=== PATIENT | male | born 1995 ===

== ENCOUNTER 2017-01-30 13:12 | Observation (INO) | payer OTHER ==
[2017-01-30] MEDS ORDERED: Sodium Chloride 0.9% 1,000 ML IV STA ×2 (13:55→17:05)
--- NOTE | 2017-01-30 13:59 | ED PDOC ---
HPI: General Adult Time Seen by Provider: 01/30/17 13:56 Chief Complaint (Nursing): Palpitations Chief Complaint (Provider): anxiety History Per: Patient, Family (21 y/o male h/o spina bifida here with anxiety ongoing x few months. Mother states he has had ongoing palpitations associated with worrying about his shunt/medical illness. Has been given vistaril for symptoms but has not helped. Was prescribed paxil but felt worse after starting and did not continue. Vomiting noted intermittently with symptoms.) Past Medical History Reviewed: Historical Data, Nursing Documentation, Vital Signs Vital Signs: Last Vital Signs Temp 98.4 F 01/30/17 16:09 Pulse 109 H 01/30/17 18:27 Resp 21 01/30/17 16:09 BP 134/78 01/30/17 16:09 Pulse Ox 100 01/30/17 16:09 - Medical History PMH: HTN, Chronic Kidney Disease - Surgical History Surgical History: Cholecystectomy - Family History Family History: States: Unknown Family Hx - Immunization History Hx Tetanus Toxoid Vaccination: Yes Hx Influenza Vaccination: Yes Hx Pneumococcal Vaccination: Yes - Home Medications Home Medications: Ambulatory Orders Medication Instructions Recorded Alprazolam [Xanax] 0.5 mg PO BID PRN 01/30/17 Chlorothiazide 1,000 mg PO QPM 01/30/17 Chlorothiazide [Chlorothiazide] 500 mg PO QAM 01/30/17 Cholecalciferol [Vitamin D 1000 IU] 1,000 unit PO DAILY 01/30/17 Docusate [Colace] 100 mg PO BID PRN 01/30/17 Enalapril Maleate [Vasotec] 10 mg PO DAILY 01/30/17 Polyethylene Glycol 3350 [Miralax] 17 gm PO DAILY PRN 01/30/17 Sennosides [Senna] 8.6 mg PO BID PRN 01/30/17 Sodium Bicarbonate Tab 1,300 mg PO BID 01/30/17 hydrOXYzine Pamoate [Vistaril] 25 mg PO BID PRN 01/30/17 - Allergies Allergies/Adverse Reactions: Allergies Allergy/AdvReac Type Severity Reaction Status Date / Time No Known Allergies Allergy Verified 06/12/16 11:18 Review of Systems ROS Statement: Except As Marked, All Systems Reviewed And Found Negative Cardiovascular: Positive for: Palpitations Gastrointestinal: Positive for: Vomiting, Constipation Physical Exam - Reviewed Nursing Documentation Reviewed: Yes Vital Signs Reviewed: Yes - Physical Exam Appears: Positive for: Well, Non-toxic, No Acute Distress Head Exam: Positive for: ATRAUMATIC, NORMAL INSPECTION, NORMOCEPHALIC Skin: Positive for: Normal Color, Warm, DRY Eye Exam: Positive for: EOMI, Normal appearance, PERRL ENT: Positive for: Normal ENT Inspection Neck: Positive for: Normal, Painless ROM Cardiovascular/Chest: Positive for: Regular Rate, Rhythm Respiratory: Positive for: CNT, Normal Breath Sounds Gastrointestinal/Abdominal: Positive for: Normal Exam, Bowel Sounds, Soft Back: Positive for: Normal Inspection Extremity: Positive for: Normal ROM Neurologic/Psych: Positive for: Alert, Oriented - Laboratory Results Result Diagrams: 01/30/17 14:05 01/30/17 14:05 - ECG O2 Sat by Pulse Oximetry: 98 - Progress ED Course And Treament: ekg: sinus tachycardia 127 bpm no ectopy no acute changes Rocephin 1 gm iv x 1 dose Ativan 0.5 mg iv x 2 doses NS 1 liter wide open x 2 liters persistent tachycardia of HR [address] Grove for observation of tachycardia Disposition - Clinical Impression Clinical Impression: Palpitations, UTI (urinary tract infection) - Patient ED Disposition Is Patient to be Admitted: Yes - Disposition Disposition Time: 18:07 Condition: FAIR - Pt Status Changed To: Hospital Disposition Of: Observation
[2017-01-30 14:11] LABS: BASO % 0.3 % (0.0-2.0); EOS % 0.1 % (0.0-4.0); HEMOGLOBIN 17.4 g/dL (12.0-18.0); LYMPH # 1.5 K/uL (1.0-4.3); LYMPH % 11.8 % (20.0-40.0); MEAN CELL VOLUME 87.6 fl (80.0-94.0); MEAN CORPUSCULAR HEMOGLOBIN 29.8 pg (27.0-31.0); MEAN PLATELET VOLUME 8.1 fl (7.2-11.7); MONO % 7.7 % (0.0-10.0); NEUT # 10.3 K/uL (1.8-7.0); NEUT % 80.1 % (50.0-75.0); NRBC % 0.1 % (0.0-0.0); RBC 5.84 Mil/uL (4.40-5.90); WHITE BLOOD COUNT 12.9 K/uL (4.8-10.8)
[2017-01-30 14:19] LABS: ALB/GLOB RATIO 1.1 (1.0-2.1); ALBUMIN 5.4 g/dL (3.5-5.0); ALT/SGPT 31 U/L (21-72); AST/SGOT 25 U/L (17-59); BLOOD UREA NITROGEN 16 mg/dl (9-20); CALCIUM 10.7 mg/dL (8.4-10.2); GFR AFRICAN-AMERICAN > 60; GFR NON-AFRICAN AMERICAN > 60; MAGNESIUM 1.6 MG/DL (1.6-2.3)
[2017-01-30 14:45] LABS: SQUAMOUS EPITHIAL < 1 /hpf (0-5); URINE BACTERIA OCC (<OCC); URINE BILIRUBIN NEGATIVE (NEGATIVE); URINE BLOOD SMALL (NEGATIVE); URINE CLARITY SLIGHTY-CLOUDY (Clear); URINE COLOR YELLOW (YELLOW); URINE GLUCOSE (UA) NEG (Normal); URINE LEUKOCYTE ESTERASE LARGE Leu/uL (Negative); URINE NITRATE NEGATIVE (NEGATIVE); URINE PROTEIN NEGATIVE (NEGATIVE)
[2017-01-30] MEDS ORDERED: Potassium Chloride 20 mEq ER Tab PO STA (15:08)
--- NOTE | 2017-01-30 15:27 | RAD ---
HISTORY: palpitation COMPARISON: Comparison chest dated 06/12/2016. . Comparison also made with CT scan chest abdomen pelvis 06/12/2016 FINDINGS: LUNGS: Poor inspiration with low lung volumes, crowded bronchovascular markings and mild bibasilar atelectasis. PLEURA: No significant pleural effusion identified, no pneumothorax apparent. CARDIOVASCULAR: Normal. OSSEOUS STRUCTURES: No significant abnormalities. VISUALIZED UPPER ABDOMEN: Normal. OTHER FINDINGS: Re- demonstrated is a right-sided FURNITURE ASSEMBLER type shunt tube which extends over the right aspect of the neck, right medial cecille thorax and medial upper abdomen. Please refer to CT scan chest abdomen and pelvis for additional details if clinically necessary. IMPRESSION: Poor inspiration with low lung volumes, crowded bronchovascular markings and mild bibasilar atelectasis. In situ FURNITURE ASSEMBLER shunt to essentially unchanged from prior study.
[2017-01-30] MEDS ORDERED: Potassium Chloride 20 mEq ER Tab PO ONE (16:16)
[2017-01-30] MEDS ORDERED: cefTRIAXone (Rocephin) 1 gm Inj ONE (16:16)
[2017-01-30] MEDS ORDERED: POLYETHYLENE GLYCOL 3350 17 GM/Dose PACKET PO PRN (22:37)
[2017-01-30] MEDS ORDERED: Dextrose 5%/Lactated Ringer's 1,000 ML IV SCH (22:45)
[2017-01-31 08:09] VITALS: BP 113/72; PULSE 93; RESP 20; TEMP 97.8; O2SAT 97
[2017-01-31 08:43] LABS: MEAN CELL VOLUME 88.8 fl (80.0-94.0); MEAN CORPUSCULAR HEMOGLOBIN 30.1 pg (27.0-31.0); RBC 5.03 Mil/uL (4.40-5.90); RED CELL DISTRIBUTION WIDTH 13.1 % (11.5-14.5); WHITE BLOOD COUNT 7.7 K/uL (4.8-10.8)
[2017-01-31 08:48] LABS: HEMOGLOBIN 15.2 g/dL (12.0-18.0)
[2017-01-31] MEDS ORDERED: CHLOROTHIAZIDE 500 MG PO SCH (09:00)
[2017-01-31] MEDS ORDERED: cefTRIAXone 2 GM in Sodium Chloride 0.9% 100 ML IVPB SCH (09:00)
[2017-01-31] MEDS ORDERED: cefTRIAXone (Rocephin) 2 gm Inj IVPB SCH (09:00)
--- NOTE | 2017-01-31 12:12 | CP.PCM.HP ---
Past Patient History - Past Medical History & Family History Past Medical History?: Yes - Past Social History Smoking Status: Never Smoked - CARDIAC Hx Cardiac Disorders: Yes - PULMONARY Hx Respiratory Disorders: No - NEUROLOGICAL Hx Neurological Disorder: Yes - HEENT Hx HEENT Problems: No - RENAL Hx Chronic Kidney Disease: Yes - ENDOCRINE/METABOLIC Hx Endocrine Disorders: Yes - HEMATOLOGICAL/ONCOLOGICAL Hx Blood Disorders: No - INTEGUMENTARY Hx Dermatological Problems: No - MUSCULOSKELETAL/RHEUMATOLOGICAL Hx Musculoskeletal Disorders: No Hx Falls: Yes - GASTROINTESTINAL Hx Gastrointestinal Disorders: No - GENITOURINARY/GYNECOLOGICAL Hx Genitourinary Disorders: No - PSYCHIATRIC Hx Psychophysiologic Disorder: No Hx Substance Use: No - SURGICAL HISTORY Hx Cholecystectomy: Yes - ANESTHESIA Hx Anesthesia: Yes Hx Anesthesia Reactions: No Hx Malignant Hyperthermia: No Meds Allergies/Adverse Reactions: Allergies Allergy/AdvReac Type Severity Reaction Status Date / Time No Known Allergies Allergy Verified 06/12/16 11:18 Results - Vital Signs Recent Vital Signs: Last Vital Signs Temp 97.8 F 01/31/17 08:08 Pulse 93 H 01/31/17 08:08 Resp 20 01/31/17 08:08 BP 113/72 01/31/17 08:08 Pulse Ox 97 01/31/17 08:08 - Labs Result Diagrams: 01/31/17 08:20 01/30/17 14:05 Labs: Laboratory Results - last 24 hr 01/30/17 01/31/17 01/31/17 22:07 05:36 08:20 WBC 7.7 RBC 5.03 Hgb 15.2 D Hct 44.7 MCV 88.8 MCH 30.1 MCHC 34.0 RDW 13.1 Plt Count 240 POC Glucose (mg/dL) 97 97 01/31/17 11:18 WBC RBC Hgb Hct MCV MCH MCHC RDW Plt Count POC Glucose (mg/dL) 106
--- NOTE | 2017-01-31 12:12 | CP.PCM.DIS ---
Provider - Provider Date of Admission: 01/30/17 18:07 Attending physician: Kranthi Grove MD Time Spent in preparation of Discharge (in minutes): 35 Hospital Course - Lab Results Lab Results: Most Recent Lab Values WBC 7.7 K/uL (4.8-10.8) 01/31/17 08:20 RBC 5.03 Mil/uL (4.40-5.90) 01/31/17 08:20 Hgb 15.2 g/dL (12.0-18.0) D 01/31/17 08:20 Hct 44.7 % (35.0-51.0) 01/31/17 08:20 MCV 88.8 fl (80.0-94.0) 01/31/17 08:20 MCH 30.1 pg (27.0-31.0) 01/31/17 08:20 MCHC 34.0 g/dL (33.0-37.0) 01/31/17 08:20 RDW 13.1 % (11.5-14.5) 01/31/17 08:20 Plt Count 240 K/uL (130-400) 01/31/17 08:20 MPV 8.1 fl (7.2-11.7) 01/30/17 14:05 Neut % (Auto) 80.1 % (50.0-75.0) H 01/30/17 14:05 Lymph % (Auto) 11.8 % (20.0-40.0) L 01/30/17 14:05 [place] % (Auto) 7.7 % (0.0-10.0) 01/30/17 14:05 Eos % (Auto) 0.1 % (0.0-4.0) 01/30/17 14:05 Baso % (Auto) 0.3 % (0.0-2.0) 01/30/17 14:05 Neut # 10.3 K/uL (1.8-7.0) H 01/30/17 14:05 Lymph # 1.5 K/uL (1.0-4.3) 01/30/17 14:05 [place] # 1.0 K/uL (0.0-0.8) H 01/30/17 14:05 Eos # 0.0 K/uL (0.0-0.7) 01/30/17 14:05 Baso # 0.0 K/uL (0.0-0.2) 01/30/17 14:05 Sodium 142 mmol/l (132-148) 01/30/17 14:05 Potassium 3.4 MMOL/L (3.6-5.0) L 01/30/17 14:05 Chloride 96 mmol/L (98-107) L 01/30/17 14:05 Carbon Dioxide 25 mmol/L (22-30) 01/30/17 14:05 Anion Gap 24 (10-20) H 01/30/17 14:05 BUN 16 mg/dl (9-20) 01/30/17 14:05 Creatinine 1.3 mg/dL (0.8-1.5) 01/30/17 14:05 Est GFR ( Amer) > 60 01/30/17 14:05 Est GFR (Non-Af Amer) > 60 01/30/17 14:05 POC Glucose (mg/dL) 106 mg/dL (65-110) 01/31/17 11:18 Random Glucose 106 mg/dL (75-110) 01/30/17 14:05 Calcium 10.7 mg/dL (8.4-10.2) H 01/30/17 14:05 Magnesium 1.6 MG/DL (1.6-2.3) 01/30/17 14:05 Total Bilirubin 0.8 mg/dl (0.2-1.3) 01/30/17 14:05 AST 25 U/L (17-59) 01/30/17 14:05 ALT 31 U/L (21-72) 01/30/17 14:05 Alkaline Phosphatase 76 U/L (38-126) 01/30/17 14:05 Total Protein 10.3 G/DL (6.3-8.2) H 01/30/17 14:05 Albumin 5.4 g/dL (3.5-5.0) H 01/30/17 14:05 Globulin 4.9 gm/dL (2.2-3.9) H 01/30/17 14:05 Albumin/Globulin Ratio 1.1 (1.0-2.1) 01/30/17 14:05 TSH 3rd Generation 1.50 mIU/ML (0.46-4.68) 01/30/17 17:10 Urine Color Yellow (YELLOW) 01/30/17 14:34 Urine Clarity Slighty-cloudy (Clear) 01/30/17 14:34 Urine pH 7.0 (5.0-8.0) 01/30/17 14:34 Ur Specific [place] 1.010 (1.003-1.030) 01/30/17 14:34 Urine Protein Negative mg/dL (NEGATIVE) 01/30/17 14:34 Urine Glucose (UA) Neg mg/dL (Normal) 01/30/17 14:34 Urine Ketones 20 mg/dL (NEGATIVE) 01/30/17 14:34 Urine Blood Small (NEGATIVE) 01/30/17 14:34 Urine Nitrate Negative (NEGATIVE) 01/30/17 14:34 Urine Bilirubin Negative (NEGATIVE) 01/30/17 14:34 Urine Urobilinogen 2.0 mg/dL (0.2-1.0) 01/30/17 14:34 Ur Leukocyte Esterase Large [place]axmi/uL (Negative) 01/30/17 14:34 Urine RBC (Auto) 4 /hpf (0-3) H 01/30/17 14:34 Urine Microscopic WBC 37 /hpf (0-5) H 01/30/17 14:34 Ur Squamous Epith Cells < 1 /hpf (0-5) 01/30/17 14:34 Urine Bacteria Occ (<OCC) H 01/30/17 14:34 Discharge Exam - Head Exam Head Exam: ATRAUMATIC, NORMAL INSPECTION, NORMOCEPHALIC Discharge Plan - Follow Up Plan Condition: FAIR Disposition: HOME/ ROUTINE Instructions: Urinary Tract Infection in Women (DC), Urinary Tract Infection in Men (DC), Dysuria (GEN)
[2017-01-31] MEDS ORDERED: CHLOROTHIAZIDE PO SCH (18:00)
--- NOTE | 2017-02-01 00:07 | CARD ---
APPROVED REPORT EKG Measurement Heart [id number] [id number] <Conclusion> Sinus tachycardia Cannot rule out Inferior infarct, age undetermined Cannot rule out Anterior infarct, age undetermined Abnormal ECG
== END 2017-01-31 12:54 | disposition home or self-care (01) ==
LOC: H.ER 13:12 → H.ERHOLD 18:07 → INTOOBSV 18:07 → H.TEL 20:27
PROVIDERS: ADMIT Family Medicine; ATTEND Family Medicine
DX: N39.0 Urinary tract infection, site not specified (principal); F41.9 Anxiety disorder, unspecified; I12.9 Hypertensive chronic kidney disease with stage 1 through stage 4 chronic kidney disease, or unspecified chronic kidney disease

== ENCOUNTER 2017-03-19 06:42 | Inpatient (IN) | payer OTHER ==
[2017-03-19] MEDS ORDERED: Sodium Chloride 0.9% 1,000 ML IV STA ×2 (07:43→10:45)
--- NOTE | 2017-03-19 07:47 | ED PDOC ---
HPI: Back Time Seen by Provider: 03/19/17 07:07 Chief Complaint (Nursing): Back Pain Chief Complaint (Provider): Back Pain History Per: Patient History/Exam Limitations: no limitations Onset/Duration Of Symptoms: Days (2) Current Symptoms Are (Timing): Constant (and radiating) Additional Complaint(s): Patient is a 22 y/o male with a past medical history of urinary tract infection , anxiety, hypertension, and cholecystectomy presenting to the emergency department for constant right flank pain that radiates to his right testicle x2 days with associated palpitations today. Denies nausea, vomiting, diarrhea, fever, or other complaints. Of note, patient has urinary incontinence due to multiple surgeries. Reports self straight-cathing 10x per day. PCP: Dr. Mccarty Past Medical History Reviewed: Historical Data, Nursing Documentation, Vital Signs Vital Signs: Last Vital Signs Temp 98.8 F 03/19/17 06:55 Pulse 127 H 03/19/17 07:44 Resp 18 03/19/17 07:44 BP 134/69 03/19/17 06:55 Pulse Ox 100 03/19/17 07:44 - Medical History PMH: Anxiety, HTN Denies: Chronic Kidney Disease Other PMH: Urinary Tract Infection, spina bifida, Chiari - Surgical History Surgical History: Cholecystectomy Other surgeries: Spina bifida, surgeries - Family History Family History: States: Unknown Family Hx - Social History Current smoker - smoking cessation education provided: No Ex-Smoker (has not smoked in the last 12 months): No Alcohol: None Drugs: Denies - Immunization History Hx Tetanus Toxoid Vaccination: Yes Hx Influenza Vaccination: Yes Hx Pneumococcal Vaccination: Yes - Home Medications Home Medications: Ambulatory Orders Medication Instructions Recorded Cholecalciferol [Vitamin D 1000 IU] 1,000 unit PO DAILY 01/30/17 Docusate [Colace] 100 mg PO BID PRN 01/30/17 Sodium Bicarbonate Tab 2 tab PO Q12 01/30/17 Folic Acid 1 mg PO DAILY 03/19/17 Metoprolol Tartrate [Lopressor] 25 mg PO DAILY 03/19/17 - Allergies Allergies/Adverse Reactions: Allergies Allergy/AdvReac Type Severity Reaction Status Date / Time No Known Allergies Allergy Verified 06/12/16 11:18 Review of Systems ROS Statement: Except As Marked, All Systems Reviewed And Found Negative Constitutional: Negative for: Fever Cardiovascular: Positive for: Palpitations Gastrointestinal: Negative for: Nausea, Vomiting, Diarrhea Musculoskeletal: Positive for: Other (right flank pain) Physical Exam - Reviewed Nursing Documentation Reviewed: Yes Vital Signs Reviewed: Yes - Physical Exam Appears: Positive for: Non-toxic, No Acute Distress (Comfortable). Negative for : Uncomfortable Head Exam: Positive for: ATRAUMATIC, NORMAL INSPECTION, NORMOCEPHALIC Skin: Positive for: Normal Color, Warm, Dry Eye Exam: Positive for: Normal appearance Neck: Positive for: Normal, Painless ROM, Supple Cardiovascular/Chest: Positive for: Tachycardia. Negative for: Regular Rate, Rhythm Respiratory: Positive for: Normal Breath Sounds. Negative for: Accessory Muscle Use, Respiratory Distress Gastrointestinal/Abdominal: Positive for: Normal Exam, Soft. Negative for: Tenderness Back: Positive for: Other (Tenderness on right flank). Negative for: L CVA Tenderness, R CVA Tenderness Extremity: Positive for: Normal ROM. Negative for: Pedal Edema Neurologic/Psych: Positive for: Alert, Oriented (x3) - Laboratory Results Result Diagrams: 03/19/17 07:20 03/19/17 07:20 - ECG ECG Rhythm: Positive for: Normal QRS, Normal ST Segment, Sinus Tachycardia. Negative for: ST/T Changes Rate: 117 O2 Sat by Pulse Oximetry: 100 (RA) Pulse Ox Interpretation: Normal Medical Decision Making Medical Decision Making: Time: 07:43 Initial impression: Right flank pain Initial plan: EKG CT A/P w/ contrast Labs ED Urine Dipstick Toradol 15 mg IVP Normal saline 1 L IV Zofran 4 mg IV Blood Culture Urine Culture Reevaluation 09:51 CT A/P scan reviewed by me and findings noted as follows: LOWER THORAX: Lung bases are clear. . No evidence of basilar consolidation effusion or pneumothorax. Small hiatal hernia. Heart size normal. LIVER: Liver exhibits normal size measuring approximately 14.5 cm in CC dimension. . No obvious hepatic mass or collection. Portal and splenic veins are opacified. GALLBLADDER AND BILE DUCTS: The gallbladder is not visualized. Correlation with surgical history. There is dilatation of the common bile duct proximal and at the level of the pancreatic head likely post cholecystectomy sequela PANCREAS: Dilatation of the common bile duct at the level of the pancreatic head likely due to post cholecystectomy. Pancreas otherwise appears grossly unremarkable. SPLEEN: Spleen exhibits normal size and attenuation pattern without mass collection or calcification. ADRENALS: The no adrenal lesions seen. KIDNEYS AND URETERS: . Re- demonstrated is apparent cortical scarring right kidney. Kidneys demonstrate relatively symmetric nephrograms however note is made of an area of diminished cortical enhancement along the anterior aspect upper/ midpole right kidney that could represent a small area of scarring however pyelonephritis not excluded. Clinical correlation history in urinalysis recommended. Minimal dilatation both proximal ureters. BLADDER: The urinary bladder is markedly distended with what probably represents large bladder diverticula along the superior margin of the urinary bladder. Marked wall thickening of the floor of the bladder which could be due to significant muscular hypertrophy however cystitis or other intrinsic/invasive wall lesion cannot be excluded. REPRODUCTIVE: Unremarkable. APPENDIX: Not seen with any certainty on this study BOWEL: Evaluation of the bowel is quite limited due to the lack of oral contrast material. Stomach is incompletely distended which presumably accounts for thick -walled appearance. The possibility of gastritis not excluded. Visualized loops of small bowel exhibit normal contour and caliber. No evidence of acute mechanical small bowel obstruction. Very large amount of stool seen throughout the entire colon to the level of the rectum consistent with fecal impaction. Rectal wall is slightly thickened ; rule out stercoral al colitis PERITONEUM: Unremarkable. No fluid collection. No free air. Distal aspect in situ [employer] shunt tube again noted. LYMPH NODES: Unremarkable. No enlarged lymph nodes. VASCULATURE: Unremarkable. No aortic aneurysm. BONES: Re- demonstrated is a spina bifida and meningomyelocele in the lower lumbar/ sacral region again noted. Collectively findings likely related to Chiari 2 malformation. OTHER FINDINGS: None. IMPRESSION: The right kidney is smaller than the left kidney and exhibits cortical scarring. There is a small area of diminished contrast enhancement along the anterior cortex of the upper/midpole right kidney that could conceivably represent a focal area of scarring however pyelonephritis cannot be excluded. . Clinical correlation recommended. Markedly distended urinary bladder with diverticula and significant wall thickening of the lower bladder espinal and floor likely due to muscular hypertrophy however the possibility of a cystitis or other intrinsic/ invasive wall lesion not excluded. Marked fecal retention/fecal impaction appears slight wall thickening of the rectosigmoid colon; rule out stercoral colitis. Spina bifida, meningomyelocele again and in situ [employer] shunt tube. Collectively the findings likely represent Chiari 2 malformation however clinical correlation with history recommended. Case discussed with Dr. Redmond at approximately 11:15 a.m. with written down and read back verification. 10:[address] Meredith. Patient will be admitted to hospital for pyelonephritis and sepsis. Scribe Attestation: Documented by Lynn Healy, acting as a scribe for Gabe Redmond MD. Provider Scribe Attestation: All medical record entries made by the Scribe were at my direction and personally dictated by me. I have reviewed the chart and agree that the record accurately reflects my personal performance of the history, physical exam, medical decision making, and the department course for this patient. I have also personally directed, reviewed, and agree with the discharge instructions and disposition. Disposition - Clinical Impression Clinical Impression: UTI (urinary tract infection), Hypokalemia, Tachycardia, Pyelonephritis, Sepsis - Patient ED Disposition Is Patient to be Admitted: Yes Discussed With DrGray: Joseph Leach Doctor Will See Patient In The: Hospital Counseled Patient/Family Regarding: Studies Performed, Diagnosis - Disposition Disposition Time: 10:47 Condition: FAIR - Pt Status Changed To: Hospital Disposition Of: Inpatient - Admit Certification Admit to Inpatient:: After my assessment, the patient will require hospitalization for at least two midnights. This is because of the severity of symptoms shown, intensity of services needed, and/or the medical risk in this patient being treated as an outpatient. - POA Present On Arrival: Cath Associated UTI
[2017-03-19 08:23] LABS: BASO # 0.1 K/uL (0.0-0.2); BASO % 0.3 % (0.0-2.0); HEMATOCRIT 48.3 % (35.0-51.0); LYMPH # 1.3 K/uL (1.0-4.3); LYMPH % 4.5 % (20.0-40.0); MEAN CELL VOLUME 88.5 fl (80.0-94.0); MEAN CORPUSCULAR HEMOGLOBIN 29.9 pg (27.0-31.0); MEAN CORPUSCULAR HGB CONC 33.8 g/dL (33.0-37.0); MEAN PLATELET VOLUME 7.6 fl (7.2-11.7); MONO % 6.8 % (0.0-10.0); NEUT # 25.3 K/uL (1.8-7.0); NEUT % 88.4 % (50.0-75.0); NRBC % 0.1 % (0.0-0.0); RED CELL DISTRIBUTION WIDTH 13.5 % (11.5-14.5); WHITE BLOOD COUNT 28.7 K/uL (4.8-10.8)
[2017-03-19 08:24] LABS: ALB/GLOB RATIO 1.1 (1.0-2.1); ALKALINE PHOSPHATASE 91 U/L (38-126); ALT/SGPT 27 U/L (21-72); AST/SGOT 24 U/L (17-59); BILIRUBIN,TOTAL 0.9 mg/dl (0.2-1.3); BLOOD UREA NITROGEN 14 mg/dl (9-20); CALCIUM 10.3 mg/dL (8.4-10.2); CARBON DIOXIDE 23 mmol/L (22-30); CHLORIDE 100 mmol/L (98-107); GFR AFRICAN-AMERICAN > 60; GLUCOSE,RANDOM 109 mg/dL (75-110); MAGNESIUM 1.7 MG/DL (1.6-2.3); PHOSPHOROUS 2.5 mg/dl (2.5-4.5); POTASSIUM 3.1 MMOL/L (3.6-5.0); SODIUM 142 mmol/l (132-148)
[2017-03-19 08:26] LABS: PLATELET COUNT 412 K/uL (130-400)
[2017-03-19 09:15] LABS: VENOUS BLOOD GAS BASE EXCESS -0.1 mmol/L (0.0-2.0); VENOUS BLOOD GAS PCO2 46 mmHg (40-60); VENOUS BLOOD PH 7.36 (7.32-7.43)
[2017-03-19] MEDS ORDERED: Potassium Chloride 20 mEq ER Tab PO ONE (09:21)
[2017-03-19] MEDS ORDERED: Iohexol 300 100 ML IJ ONE (09:28)
[2017-03-19] MEDS ORDERED: Sodium Chloride 0.9% 50 ML IV ONE (09:28)
[2017-03-19] MEDS ORDERED: cefTRIAXone (Rocephin) 1 gm Inj ONE ×2 (09:29→10:11)
[2017-03-19] MEDS ORDERED: Sodium Chloride 0.9% 1,000 ML IV SCH (11:00)
--- NOTE | 2017-03-19 11:21 | CT ---
PROCEDURE: CT abdomen pelvis dated 03/19/2017 HISTORY: right flank pain dysuria COMPARISON: Comparison made with CT scan abdomen and pelvis dated 06/12/2016. TECHNIQUE: Contiguous axial images of the abdomen and pelvis performed following intravenous injection of approximately 100 cc of Omnipaque 300 contrast material intravenous contrast material. Coronal and Sagittal reformats generated. . Note that this study is quite limited by motion artifact Radiation dose: Total exam DLP = 711.27 mGy-cm. This CT exam was performed using one or more of the following dose reduction techniques: Automated exposure control, adjustment of the mA and/or kV according to patient size, and/or use of iterative reconstruction technique. FINDINGS: LOWER THORAX: Lung bases are clear. . No evidence of basilar consolidation effusion or pneumothorax. Small hiatal hernia. Heart size normal. LIVER: Liver exhibits normal size measuring approximately 14.5 cm in CC dimension. . No obvious hepatic mass or collection. Portal and splenic veins are opacified. GALLBLADDER AND BILE DUCTS: The gallbladder is not visualized. Correlation with surgical history. There is dilatation of the common bile duct proximal and at the level of the pancreatic head likely post cholecystectomy sequela PANCREAS: Dilatation of the common bile duct at the level of the pancreatic head likely due to post cholecystectomy. Pancreas otherwise appears grossly unremarkable. SPLEEN: Spleen exhibits normal size and attenuation pattern without mass collection or calcification. ADRENALS: The no adrenal lesions seen. KIDNEYS AND URETERS: . Re- demonstrated is apparent cortical scarring right kidney. Kidneys demonstrate relatively symmetric nephrograms however note is made of an area of diminished cortical enhancement along the anterior aspect upper/ midpole right kidney that could represent a small area of scarring however pyelonephritis not excluded. Clinical correlation history in urinalysis recommended. Minimal dilatation both proximal ureters. BLADDER: The urinary bladder is markedly distended with what probably represents large bladder diverticula along the superior margin of the urinary bladder. Marked wall thickening of the floor of the bladder which could be due to significant muscular hypertrophy however cystitis or other intrinsic/invasive wall lesion cannot be excluded. REPRODUCTIVE: Unremarkable. APPENDIX: Not seen with any certainty on this study BOWEL: Evaluation of the bowel is quite limited due to the lack of oral contrast material. Stomach is incompletely distended which presumably accounts for thick-walled appearance. The possibility of gastritis not excluded. Visualized loops of small bowel exhibit normal contour and caliber. No evidence of acute mechanical small bowel obstruction. Very large amount of stool seen throughout the entire colon to the level of the rectum consistent with fecal impaction. Rectal wall is slightly thickened ; rule out stercoral al colitis PERITONEUM: Unremarkable. No fluid collection. No free air. Distal aspect in situ GEAR KEEPER shunt tube again noted. LYMPH NODES: Unremarkable. No enlarged lymph nodes. VASCULATURE: Unremarkable. No aortic aneurysm. BONES: Re- demonstrated is a spina bifida and meningomyelocele in the lower lumbar/sacral region again noted. Collectively findings likely related to Chiari 2 malformation. OTHER FINDINGS: None. IMPRESSION: The right kidney is smaller than the left kidney and exhibits cortical scarring. There is a small area of diminished contrast enhancement along the anterior cortex of the upper/midpole right kidney that could conceivably represent a focal area of scarring however pyelonephritis cannot be excluded. . Clinical correlation recommended. Markedly distended urinary bladder with diverticula and significant wall thickening of the lower bladder espinal and floor likely due to muscular hypertrophy however the possibility of a cystitis or other intrinsic/ invasive wall lesion not excluded. Marked fecal retention/fecal impaction appears slight wall thickening of the rectosigmoid colon; rule out stercoral colitis. Spina bifida, meningomyelocele again and in situ GEAR KEEPER shunt tube. Collectively the findings likely represent Chiari 2 malformation however clinical correlation with history recommended. Case discussed with Dr. Redmond at approximately 11:15 a.m. with written down and read back verification.
--- NOTE | 2017-03-19 11:25 | CARD ---
APPROVED REPORT EKG Measurement Heart [id number] 140P32 [id number] <Conclusion> Sinus tachycardia Minimal voltage criteria for LVH, may be normal variant Cannot rule out Anterior infarct, age undetermined Abnormal ECG
--- NOTE | 2017-03-19 11:54 | CP.PCM.HP ---
History of Present Illness - History of Present Illness History of Present Illness: CC: right sided flank pain This is a 22 year old male with a past medical history significant for anxiety, spina bifida, hydrocephaly with shunt, multiple surgeries secondary to urinary incontinence, including a bladder augmentation enterocystoplasty with mitrofanoff appendicovesicostomy, who has straight cath multiple times a day, resulting in multiple UTI's in the past. The patient presents today with constant moderate to severe right flank pain that radiates to his right testicle , getting progressively wirse for the last two days, with associated palpitations today. The patient admits to associated chills and nausea with one episode of nonbilious nonbloody emesis. In the ED, the patient had CT scan and laboratory workup revealing right sided pyelonephritis. He was also found to meet septic criteria, with tachycardia in the 130's and significant leukocytosis with bandemia. His blood pressure is normotensive at this time. He is to be admitted for further management of his sepsis due to pyelonephritis. The patient denies fevers, diarrhea, constipation, or other complaints. Present on Admission - Present on Admission Any Indicators Present on Admission: No History of DVT/PE: No History of Uncontrolled Diabetes: No Urinary Catheter: No (Straight caths) Decubitus Ulcer Present: No Review of Systems - Constitutional Constitutional: As Per HPI, Chills, Lethargy. absent: Increased Appetite, Night Sweats - EENT Eyes: absent: Change in Vision, Irritation Nose/Mouth/Throat: absent: Nasal Congestion, Nasal Discharge, Nose Pain, Sinus Pressure - Cardiovascular Cardiovascular: Palpitations. absent: Chest Pain, Claudication, Edema, Irregular Heart Rhythm - Respiratory Respiratory: absent: Cough, Dyspnea, Chest Congestion - Gastrointestinal Gastrointestinal: Dyspepsia. absent: Abdominal Pain, Change in Stool Character , Diarrhea - Genitourinary Genitourinary: Difficulty Urinating, Urinary Incontinence. absent: Dysuria, Pyuria - Reproductive: Male Reproductive:Male: As Per HPI Additional comments: Pain from right flank radiating to right testicle - Musculoskeletal Musculoskeletal: absent: Abnormal Gait, Arthralgias, Myalgias - Integumentary Integumentary: absent: Acne, Hirsutism, Photosensitivity, Pruritus, Rash - Neurological Neurological: absent: Disequilibrium, Dizziness, Numbness, Focal Weakness - Psychiatric Psychiatric: Anxiety. absent: Depression, Hopelessness, Irritability - Endocrine Endocrine: Fatigue. absent: Deepening of Voice, Excessive Sweating, Heat Intolorance Past Patient History - Past Medical History & Family History Past Medical History?: Yes Past Family History: Reviewed and not pertinent - Past Social History Alcohol: None Drugs: Denies - CARDIAC Hx Hypertension: Yes - PULMONARY Hx Respiratory Disorders: No - NEUROLOGICAL Hx Neurological Disorder: Yes (Spina bifida, HOISTER shunt) - HEENT Hx HEENT Problems: No - RENAL Hx Chronic Kidney Disease: No - ENDOCRINE/METABOLIC Hx Endocrine Disorders: No - HEMATOLOGICAL/ONCOLOGICAL Hx Blood Disorders: No - INTEGUMENTARY Hx Dermatological Problems: No - MUSCULOSKELETAL/RHEUMATOLOGICAL Hx Musculoskeletal Disorders: No Hx Falls: Yes - GASTROINTESTINAL Hx Gastrointestinal Disorders: No - GENITOURINARY/GYNECOLOGICAL Hx Genitourinary Disorders: Yes (Incontinence) - PSYCHIATRIC Hx Anxiety: Yes - SURGICAL HISTORY Hx Cholecystectomy: Yes - ANESTHESIA Hx Anesthesia: Yes Hx Anesthesia Reactions: No Hx Malignant Hyperthermia: No Meds Allergies/Adverse Reactions: Allergies Allergy/AdvReac Type Severity Reaction Status Date / Time No Known Allergies Allergy Verified 06/12/16 11:18 Physical Exam - Constitutional Appears: Well, Non-toxic, No Acute Distress - Head Exam Head Exam: ATRAUMATIC, NORMAL INSPECTION, NORMOCEPHALIC - Eye Exam Eye Exam: EOMI, Normal appearance, PERRL - ENT Exam ENT Exam: Mucous Membranes Dry, Normal Exam - Respiratory Exam Respiratory Exam: Clear to Auscultation Bilateral, NORMAL BREATHING PATTERN - Cardiovascular Exam Cardiovascular Exam: Tachycardia, REGULAR RHYTHM, +S1, +S2 - GI/Abdominal Exam GI & Abdominal Exam: Normal Bowel Sounds, Soft. absent: Tenderness - Extremities Exam Extremities exam: Positive for: normal inspection - Back Exam Back exam: CVA tenderness (R). absent: muscle spasm, rash noted - Neurological Exam Neurological exam: Alert, CN II-XII Intact, Normal Gait, Oriented x3, Reflexes Normal - Skin Skin Exam: Dry, Intact, Normal Color, Warm Results - Vital Signs Recent Vital Signs: Last Vital Signs Temp 98.9 F 03/19/17 10:29 Pulse 117 H 03/19/17 11:25 Resp 16 03/19/17 10:29 BP 115/71 03/19/17 10:29 Pulse Ox 100 03/19/17 11:25 - Labs Result Diagrams: 03/19/17 07:20 03/19/17 07:20 - Impressions Impression: EKG shows sinus tachycardia at rate of 117, no acute ST or T wave changes, no axis deviation Assessment & Plan - Assessment and Plan (Free Text) Assessment: - Sepsis with tachycardia and significant leukocytosis with bandemia - Right sided pyelonephritis - Hypokalemia, likely secondary to GI losses from vomiting - History of hydrocephaly with shunt and spina bifida - Nausea/vomiting with reflux symptoms - Anxiety Plan: - Admit to telemetry floor - Patient received 2 liters of NS in the ED, continue NS at 125 cc/hour for rehydration and treatment of sepsis - Blood and urine cultures pending - Kdur 20 meq in ED, continue 20 meq po BID. Recheck in AM. - Zofran PRN for tx of N/V - Continue Rocephin 1 gram IVPB daily - Toradol PRN for pain - Afebrile at this time - Follow up BCX, UCX - Repeat CBC, BMP in AM - Estimated LOS > 2 midnights. Estimated time spent with patient, charting, formulation of plan, and collaboration of care is 40 minutes. - Date & Time Date: 03/19/17 Time: 11:50
[2017-03-19 12:09] LABS: NEUTROPHIL 83 % (42-75); TOTAL CELLS COUNTED 100
[2017-03-19] MEDS: Sodium Chloride 0.9% 1,000 ML IV SCH ×3 (13:30→23:59)
[2017-03-19] MEDS: Potassium Chloride 20 mEq ER Tab PO SCH (17:47)
[2017-03-20] MEDS ORDERED: Alum-Mag Hydrox-Simethicone Susp (30 mL) PO ONE (00:02)
[2017-03-20] MEDS: Sodium Chloride 0.9% 1,000 ML IV SCH ×5 (04:14→20:42)
[2017-03-20] MEDS ORDERED: Sodium Chloride 0.9% 1,000 ML IV SCH (05:00)
[2017-03-20 06:47] LABS: BLOOD UREA NITROGEN 11 mg/dl (9-20); CALCIUM 7.7 mg/dL (8.4-10.2); CARBON DIOXIDE 22 mmol/L (22-30); CHLORIDE 108 mmol/L (98-107); GFR AFRICAN-AMERICAN > 60; GLUCOSE,RANDOM 101 mg/dL (75-110); POTASSIUM 3.5 MMOL/L (3.6-5.0); SODIUM 142 mmol/l (132-148)
[2017-03-20 07:07] LABS: HEMATOCRIT 37.8 % (35.0-51.0); MEAN CELL VOLUME 89.4 fl (80.0-94.0); MEAN CORPUSCULAR HGB CONC 33.5 g/dL (33.0-37.0); RED CELL DISTRIBUTION WIDTH 13.7 % (11.5-14.5)
[2017-03-20] MEDS: Potassium Chloride 20 mEq ER Tab PO SCH ×2 (08:42→17:04)
[2017-03-20] MEDS: Alum-Mag Hydrox-Simethicone Susp (30 mL) PO PRN ×2 (08:50→20:33)
[2017-03-20] MEDS ORDERED: Potassium Chloride 10 mEq ER Tab PO ONE (10:30)
[2017-03-20] MEDS: Piperacillin/Tazobact 3.375 GM in Sodium Chloride 0.9% 100 ML IVPB SCH ×3 (13:23→21:19)
--- NOTE | 2017-03-20 13:59 | US ---
EXAM: US Scrotum EXAM DATE/TIME: 03/20/2017 9:54 AM CLINICAL HISTORY: 22 years old, male; Pain; Scrotum pain; Patient HX: Pt states pain x1 day, swelling x few weeks; Additional info: Swollen and painful right testicle TECHNIQUE: Real-time ultrasound of the scrotum with color Doppler and image documentation. COMPARISON: No relevant prior studies available. FINDINGS: Right testicle: Measures 3.6 x 2.8 x 3 cm. Diffuse increase vascularity. Left testicle: Measures 3.1 x 2.4 x 1.6 cm. No mass. Normal color Doppler arterial and venous flow. Epididymides: Enlarged and heterogeneous right epididymis measures 0.95 x 1.4 x 0.7 cm. Marked increase vascularity throughout. Left epididymis measures 0.6 x 0.95 x 0.8 cm. Normal vascularity. Scrotum: Scrotal wall thickening. Complex multiseptated fluid collection superior and medial to the right testis measures 3.95 x 2.1 x 3.5 cm, nonvascular. Simple cystic structure superior to the right testis of 1.85 x 1.3 x 0.5 cm, also nonvascular. Lastly, echogenic structure superior to the testis measures 4.1 x 5 x 2.4 cm, large vessels through this area. Small right hydrocele. Moderate to large left varicocele. IMPRESSION: 1. Right epididymoorchitis with complex septated hydrocele, cannot exclude abscess. 2. Bilateral, right greater than left varicoceles. Fairly homogeneous hypoechogenicity around the right varicocele, possible herniated fat.
--- NOTE | 2017-03-20 14:29 | CP.PCM.PN ---
Subjective - Date & Time of Evaluation Date of Evaluation: 03/20/17 Time of Evaluation: 13:00 - Subjective Subjective: Pt seen and examined. Claimed he was feeling better and has less pain on the enlarged right testicle Objective - Vital Signs/Intake and Output Vital Signs (last 24 hours): Temp Pulse Resp BP Pulse Ox 100.5 F H 121 H 20 106/64 98 03/20/17 13:34 03/20/17 12:44 03/20/17 12:44 03/20/17 12:44 03/20/17 12:44 Intake and Output: 03/20/17 03/20/17 06:59 18:59 Intake Total 2500 Output Total 900 Balance 1600 - Medications Medications: Current Medications Acetaminophen (Tylenol 325mg Tab) 650 mg PO Q6 PRN PRN Reason: Fever >100.4 F Last Admin: 03/20/17 13:34 Dose: 650 mg Al Hydrox/Mg Hydrox/Simethicone (Maalox Plus 30 Ml) 30 ml PO Q6 PRN PRN Reason: Indigestion / Heartburn Last Admin: 03/20/17 08:50 Dose: 30 ml Alprazolam (Xanax) 0.5 mg PO Q8 PRN PRN Reason: Anxiety Last Admin: 03/20/17 08:45 Dose: 0.5 mg Cholecalciferol (Vitamin D) 1,000 iu PO DAILY [facility] Last Admin: 03/20/17 08:43 Dose: 1,000 iu Docusate Sodium (Colace) 100 mg PO BID PRN PRN Reason: Constipation Last Admin: 03/19/17 17:39 Dose: 100 mg Folic Acid (Folic Acid) 1 mg PO DAILY [facility] Last Admin: 03/20/17 08:42 Dose: 1 mg Ceftriaxone Sodium 1 gm/ (Sodium Chloride) 100 mls @ 100 mls/hr IVPB DAILY [facility] Last Admin: 03/20/17 08:48 Dose: 100 mls/hr Sodium Chloride (Sodium Chloride 0.9%) 1,000 mls @ 250 mls/hr IV .Q4H [facility] Last Admin: 03/20/17 13:27 Dose: 250 mls/hr Sodium Chloride (Sodium Chloride 0.9%) 1,000 mls @ 999 mls/hr IV .Q1H1M [facility] Stop: 03/21/17 04:50 Last Admin: 03/20/17 04:56 Dose: 999 mls/hr Piperacillin Sod/Tazobactam (Sod 3.375 gm/ Sodium Chloride) 100 mls @ 100 mls/ hr IVPB Q6 [facility] Last Admin: 03/20/17 13:23 Dose: 100 mls/hr Ketorolac Tromethamine (Toradol) 30 mg IVP Q6 PRN PRN Reason: Pain, severe (8-10) Last Admin: 03/20/17 00:41 Dose: 30 mg Ketorolac Tromethamine (Toradol) 15 mg IVP Q6 PRN PRN Reason: Pain, moderate (4-7) Lactulose (Enulose) 20 gm PO DAILY PRN PRN Reason: Constipation Last Admin: 03/20/17 08:41 Dose: 20 gm Metoprolol Tartrate (Lopressor) 25 mg PO DAILY [facility] Last Admin: 03/20/17 08:47 Dose: 25 mg Ondansetron HCl (Zofran Inj) 4 mg IVP Q6 PRN PRN Reason: Nausea/Vomiting Last Admin: 03/20/17 00:42 Dose: 4 mg Potassium Chloride (K-Dur 20 Meq Er Tab) 20 meq PO BID [facility] Last Admin: 03/20/17 08:42 Dose: 20 meq Sodium Bicarbonate (Sodium Bicarbonate Tab) 1,300 mg PO Q12 [facility] Last Admin: 03/19/17 21:20 Dose: 1,300 mg - Labs Labs: 03/20/17 06:15 03/20/17 06:15 - Constitutional Appears: No Acute Distress - Head Exam Head Exam: ATRAUMATIC - Eye Exam Eye Exam: absent: Scleral icterus - ENT Exam ENT Exam: Mucous Membranes Moist - Neck Exam Neck Exam: absent: Meningismus - Respiratory Exam Respiratory Exam: absent: Rhonchi, Wheezes, Respiratory Distress - Cardiovascular Exam Cardiovascular Exam: Tachycardia - GI/Abdominal Exam GI & Abdominal Exam: Soft. absent: Tenderness - Rectal Exam Rectal Exam: Deferred - Exam Exam: Scrotal Swelling (right testicle enlarged and erythematous with some tenderness), Testicular Tenderness - Neurological Exam Neurological Exam: Alert, Oriented x3 - Psychiatric Exam Psychiatric exam: Normal Affect - Skin Skin Exam: Dry, Intact Assessment and Plan - Assessment and Plan (Free Text) Assessment: 22 yo male with history of spina bifida, hydrocephaly with shunt, multiple surgeries because of urinary incontinence leading to multiple UTI came because of severe right flank pain radiating to an enlarged and tender right testicle associated with chills and palpitations. 1. Sepsis still with low grade fever and WBC doubled to 48 from 28.7 blood and urine cultures were sent ID consult with Dr Haylee García for wider coverage 2. Pyelonephritis CT scan of abd/pelvis: showed contracted and scarred right kidney but cannot rule out pyelonephritis; bladder revealed wall thickening probably because of cystitis continue Susannahsyn and Rocephin 3. Epididymitis/Orchitis Testicular sonogram: significant for an enlarged right testicle with increased vascularity; right epididymis was also enlarged with increased vascularity; scrotum with thickened wall; abscess could not be excluded; bilateral varicocele urology consult with Dr Leal
[2017-03-21] MEDS: Piperacillin/Tazobact 3.375 GM in Sodium Chloride 0.9% 100 ML IVPB SCH ×4 (04:02→21:58)
[2017-03-21] MEDS: Sodium Chloride 0.9% 1,000 ML IV SCH ×6 (04:04→19:49)
[2017-03-21] MEDS: Potassium Chloride 20 mEq ER Tab PO SCH ×2 (08:59→16:55)
--- NOTE | 2017-03-21 11:44 | CP.PCM.PN ---
Subjective - Date & Time of Evaluation Date of Evaluation: 03/21/17 Time of Evaluation: 11:30 - Subjective Subjective: No fever today markedly leukocytosis from 48k now down to 40K complains of scrotal swelling and tenderness but staes , it is better today denies CP no SOB no abd pain flank pain resolved Does straight cath q 3 hrs at home Objective - Vital Signs/Intake and Output Vital Signs (last 24 hours): Temp Pulse Resp BP Pulse Ox 98.5 F 112 H 18 100/68 98 03/21/17 08:02 03/21/17 08:02 03/21/17 08:02 03/21/17 08:02 03/21/17 08:02 Intake and Output: 03/21/17 03/21/17 06:59 18:59 Intake Total 3150 2800 Output Total 2250 1850 Balance 900 950 - Medications Medications: Current Medications Acetaminophen (Tylenol 325mg Tab) 650 mg PO Q6 PRN PRN Reason: Fever >100.4 F Last Admin: 03/20/17 13:34 Dose: 650 mg Al Hydrox/Mg Hydrox/Simethicone (Maalox Plus 30 Ml) 30 ml PO Q6 PRN PRN Reason: Indigestion / Heartburn Last Admin: 03/20/17 20:33 Dose: 30 ml Alprazolam (Xanax) 0.5 mg PO Q8 PRN PRN Reason: Anxiety Last Admin: 03/20/17 20:39 Dose: 0.5 mg Cholecalciferol (Vitamin D) 1,000 iu PO DAILY [facility] Last Admin: 03/21/17 09:00 Dose: 1,000 iu Docusate Sodium (Colace) 100 mg PO BID PRN PRN Reason: Constipation Last Admin: 03/20/17 21:17 Dose: 100 mg Folic Acid (Folic Acid) 1 mg PO DAILY [facility] Last Admin: 03/21/17 08:58 Dose: 1 mg Ceftriaxone Sodium 1 gm/ (Sodium Chloride) 100 mls @ 100 mls/hr IVPB DAILY [facility] Last Admin: 03/21/17 09:01 Dose: 100 mls/hr Sodium Chloride (Sodium Chloride 0.9%) 1,000 mls @ 250 mls/hr IV .Q4H [facility] Last Admin: 03/21/17 09:00 Dose: 250 mls/hr Piperacillin Sod/Tazobactam (Sod 3.375 gm/ Sodium Chloride) 100 mls @ 100 mls/ hr IVPB Q6 [facility] Last Admin: 03/21/17 09:14 Dose: 100 mls/hr Ketorolac Tromethamine (Toradol) 30 mg IVP Q6 PRN PRN Reason: Pain, severe (8-10) Last Admin: 03/20/17 21:26 Dose: 30 mg Ketorolac Tromethamine (Toradol) 15 mg IVP Q6 PRN PRN Reason: Pain, moderate (4-7) Lactulose (Enulose) 20 gm PO DAILY [facility] Metoprolol Tartrate (Lopressor) 25 mg PO DAILY [facility] Last Admin: 03/21/17 09:11 Dose: 25 mg Ondansetron HCl (Zofran Inj) 4 mg IVP Q6 PRN PRN Reason: Nausea/Vomiting Last Admin: 03/20/17 00:42 Dose: 4 mg Potassium Chloride (K-Dur 20 Meq Er Tab) 20 meq PO BID [facility] Last Admin: 03/21/17 08:59 Dose: 20 meq - Labs Labs: 03/20/17 06:15 03/20/17 06:15 - Constitutional Appears: No Acute Distress - Head Exam Head Exam: NORMAL INSPECTION, NORMOCEPHALIC - Eye Exam Eye Exam: EOMI, Normal appearance, PERRL Pupil Exam: NORMAL ACCOMODATION - ENT Exam ENT Exam: Mucous Membranes Moist, Normal External Ear Exam - Neck Exam Neck Exam: Full ROM. absent: Meningismus - Respiratory Exam Respiratory Exam: NORMAL BREATHING PATTERN. absent: Rales, Wheezes, Respiratory Distress - Cardiovascular Exam Cardiovascular Exam: REGULAR RHYTHM, +S1, +S2 - GI/Abdominal Exam GI & Abdominal Exam: Soft, Normal Bowel Sounds. absent: Tenderness - Exam Exam: Scrotal Swelling (right), Testicular Tenderness - Extremities Exam Extremities Exam: Normal Capillary Refill. absent: Calf Tenderness, Pedal Edema - Back Exam Back Exam: absent: CVA tenderness (L), CVA tenderness (R) - Neurological Exam Neurological Exam: Alert, Awake Neuro motor strength exam: Left Upper Extremity: 5, Right Upper Extremity: 5 - Psychiatric Exam Psychiatric exam: Normal Affect, Normal Mood - Skin Skin Exam: Dry, Normal Color, Warm Assessment and Plan (1) Sepsis Status: Acute (2) Epididymo-orchitis Status: Acute (3) UTI (urinary tract infection) Status: Acute (4) Neurogenic bladder Status: Chronic (5) Fecal retention Status: Chronic (6) DVT prophylaxis Status: Acute - Assessment and Plan (Free Text) Assessment: 22 y/o gent with hx of Hydrocephalus s/p SHIFT BOSS Shunt, Spina Bifida, Neurogenic Bladder s/p Bladdr Augmenttaion Sx, on Intermittent Straight catheterization, hx of Recurrent UTI, came in bec of fever, right scrotal swelling and pain. (1) Sepsis sec to Epididymo-orchitis and UTI Status: Acute Marked leukocytosis to 40K Lactic acid normal Urine c/s : E coli sensitive to Zosyn ID consult check Urine for GC/Chlam HIV test, RPR Pt denies any sexual contact Fever resolved (2) Epididymo-orchitis Status: Acute Urology consult (3) UTI (urinary tract infection) Status: Acute E coli sensitive to IV Zosyn (4) Neurogenic bladder Status: Chronic Hx of Bladder Augementation On Staright catheterization q 3 at home (5) Fecal retention Status: Chronic Lactulose daily (6) DVT prophylaxis Status: Acute Lovenox
[2017-03-21 12:26] LABS: BASO % 0.1 % (0.0-2.0); EOS # 0.2 K/uL (0.0-0.7); EOS % 0.5 % (0.0-4.0); HEMATOCRIT 39.6 % (35.0-51.0); LYMPH # 2.2 K/uL (1.0-4.3); LYMPH % 5.3 % (20.0-40.0); MEAN CELL VOLUME 90.1 fl (80.0-94.0); MEAN CORPUSCULAR HEMOGLOBIN 29.2 pg (27.0-31.0); MEAN CORPUSCULAR HGB CONC 32.4 g/dL (33.0-37.0); MEAN PLATELET VOLUME 7.8 fl (7.2-11.7); MONO # 1.4 K/uL (0.0-0.8); MONO % 3.5 % (0.0-10.0); NEUT % 90.6 % (50.0-75.0); PLATELET COUNT 307 K/uL (130-400)
[2017-03-21 12:31] LABS: WHITE BLOOD COUNT 40.8 K/uL (4.8-10.8)
[2017-03-21 12:39] LABS: ALKALINE PHOSPHATASE 90 U/L (38-126); ALT/SGPT 24 U/L (21-72); AST/SGOT 16 U/L (17-59); BILIRUBIN,TOTAL 0.4 mg/dl (0.2-1.3); BLOOD UREA NITROGEN 9 mg/dl (9-20); CALCIUM 8.4 mg/dL (8.4-10.2); CARBON DIOXIDE 23 mmol/L (22-30); CHLORIDE 108 mmol/L (98-107); GFR AFRICAN-AMERICAN > 60; GLUCOSE,RANDOM 93 mg/dL (75-110); POTASSIUM 3.6 MMOL/L (3.6-5.0); SODIUM 142 mmol/l (132-148); TOTAL PROTEIN 6.2 G/DL (6.3-8.2)
[2017-03-21 13:07] LABS: EOSINOPHIL 1 % (0-7); NEUTROPHIL 82 % (42-75); TOTAL CELLS COUNTED 100
--- NOTE | 2017-03-21 15:42 | CP.PCM.CON ---
History of Present Illness - History of Present Illness History of Present Illness: 22 y/o male with PMHx of spina bifida, hydrocephaly with shunt, neurogenic bladder, pyelonephritis, diabetes insipidus admitted for sepsis seen by podiatry at bedside with Dr. Rosales for right foot plantar ulcer. Patient states he has had the callus on the bottom of the right foot for approx 2 years and follows a network planner in [place], Dr. Villalobos. Patient denies having any pain in the foot or at the ulcer site, and admits that he does not have much sensation in the area. Patient does not have dressing on foot at time of visit. Patient denies F/C/N/V at this time, and states he is feeling better than when he was admitted a few days ago with a fever and abdominal pain. Pt has no other pedal complaints at this time. Review of Systems - Review of Systems All systems: reviewed and no additional remarkable complaints except (per HPI) Past Patient History - Past Medical History & Family History Past Medical History?: Yes - Past Social History Smoking Status: Never Smoked - CARDIAC Hx Hypertension: Yes Other/Comment: tachycardia - PULMONARY Hx Respiratory Disorders: No - NEUROLOGICAL Hx Neurological Disorder: Yes (Spina bifida, [employer] MARK[employer]ING [employer] shunt) - HEENT Hx HEENT Problems: No - RENAL Hx Chronic Kidney Disease: No Hx Pyelonephritis: Yes - ENDOCRINE/METABOLIC Hx Endocrine Disorders: No - HEMATOLOGICAL/ONCOLOGICAL Hx Blood Disorders: No Hx AIDS: No Hx Human Immunodeficiency Virus (HIV): No - INTEGUMENTARY Hx Dermatological Problems: No Other/Comment: unstageable right foot ulcer - MUSCULOSKELETAL/RHEUMATOLOGICAL Hx Musculoskeletal Disorders: No Hx Falls: Yes - GASTROINTESTINAL Hx Gastrointestinal Disorders: No Hx Constipation: Yes (last bm 4 days ago) - GENITOURINARY/GYNECOLOGICAL Hx Genitourinary Disorders: Yes (Incontinence) Other/Comment: mother catheterizes prn hx freq uti surgery ? procedure - PSYCHIATRIC Hx Anxiety: Yes Hx Substance Use: No - SURGICAL HISTORY Hx Cholecystectomy: Yes Hx Orthopedic Surgery: Yes (foot deformity, decubiti) Other/Comment: INTER[employer] MARKETING [employer] Shunt. right foot ortho surgery ,decubiti skin graft - ANESTHESIA Hx Anesthesia: Yes Hx Anesthesia Reactions: No Hx Malignant Hyperthermia: No Meds Allergies/Adverse Reactions: Allergies Allergy/AdvReac Type Severity Reaction Status Date / Time No Known Allergies Allergy Verified 06/12/16 11:18 - Medications Medications: Current Medications Acetaminophen (Tylenol 325mg Tab) 650 mg PO Q6 PRN PRN Reason: Fever >100.4 F Last Admin: 03/20/17 13:34 Dose: 650 mg Al Hydrox/Mg Hydrox/Simethicone (Maalox Plus 30 Ml) 30 ml PO Q6 PRN PRN Reason: Indigestion / Heartburn Last Admin: 03/20/17 20:33 Dose: 30 ml Alprazolam (Xanax) 0.5 mg PO Q8 PRN PRN Reason: Anxiety Last Admin: 03/20/17 20:39 Dose: 0.5 mg Cholecalciferol (Vitamin D) 1,000 iu PO DAILY [facility] Last Admin: 03/21/17 09:00 Dose: 1,000 iu Docusate Sodium (Colace) 100 mg PO BID PRN PRN Reason: Constipation Last Admin: 03/20/17 21:17 Dose: 100 mg Enoxaparin Sodium (Lovenox) 40 mg SC DAILY [facility] PRN Reason: Protocol Folic Acid (Folic Acid) 1 mg PO DAILY [facility] Last Admin: 03/21/17 08:58 Dose: 1 mg Ceftriaxone Sodium 1 gm/ (Sodium Chloride) 100 mls @ 100 mls/hr IVPB DAILY [facility] Last Admin: 03/21/17 09:01 Dose: 100 mls/hr Sodium Chloride (Sodium Chloride 0.9%) 1,000 mls @ 250 mls/hr IV .Q4H [facility] Last Admin: 03/21/17 14:52 Dose: 250 mls/hr Piperacillin Sod/Tazobactam (Sod 3.375 gm/ Sodium Chloride) 100 mls @ 100 mls/ hr IVPB Q6 [facility] Last Admin: 03/21/17 15:31 Dose: 100 mls/hr Ketorolac Tromethamine (Toradol) 15 mg IVP Q6 PRN PRN Reason: Pain, moderate (4-7) Lactulose (Enulose) 20 gm PO DAILY [facility] Metoprolol Tartrate (Lopressor) 25 mg PO DAILY [facility] Last Admin: 03/21/17 09:11 Dose: 25 mg Ondansetron HCl (Zofran Inj) 4 mg IVP Q6 PRN PRN Reason: Nausea/Vomiting Last Admin: 03/20/17 00:42 Dose: 4 mg Potassium Chloride (K-Dur 20 Meq Er Tab) 20 meq PO BID [facility] Last Admin: 03/21/17 08:59 Dose: 20 meq Physical Exam - Constitutional Appears: Well, Non-toxic, No Acute Distress - Extremities Exam Additional comments: RLE focused exam: Vasc: DP/PT pulses palpable 2/4. Temperature gradient warm to cool. CFT < 3 sec to all digits. No pedal edema. Derm: Hyperpigmentation noted along lateral aspect of foot at site of prior skin graft. 1.1cm x 0.7cm x 0.4cm ulceration noted to plantar aspect of sub met 4. Hyperkeratotic rim noted with soft tissue exposure through ulcer opening. Serous drainage expressed from wound. No tunneling, no malodor, no purulence, no undermining, no surrounding erythema, no cellulitic changes. Neuro: Protective sensation grossly diminished Ortho: No tenderness elicited upon palpation of ulceration site - Neurological Exam Neurological exam: Alert, Oriented x3 - Psychiatric Exam Psychiatric exam: Normal Affect, Normal Mood Results - Vital Signs Recent Vital Signs: Last Vital Signs Temp 98.4 F 03/21/17 12:57 Pulse 104 H 03/21/17 12:57 Resp 18 03/21/17 12:57 BP 101/71 03/21/17 12:57 Pulse Ox 100 03/21/17 12:57 - Labs Result Diagrams: 03/21/17 12:14 03/21/17 12:14 Labs: Laboratory Results - last 24 hr 03/21/17 03/21/17 12:14 12:14 WBC 40.8 H* RBC 4.39 L Hgb 12.8 Hct 39.6 MCV 90.1 MCH 29.2 MCHC 32.4 L RDW 14.0 Plt Count 307 MPV 7.8 Neut % (Auto) 90.6 H Lymph % (Auto) 5.3 L Estill % (Auto) 3.5 Eos % (Auto) 0.5 Baso % (Auto) 0.1 Neut # 37.0 H Lymph # 2.2 Estill # 1.4 H Eos # 0.2 Baso # 0.0 Neutrophils % (Manual) 82 H Band Neutrophils % 5 H Lymphocytes % (Manual) 11 L Monocytes % (Manual) 1 Eosinophils % (Manual) 1 Platelet Estimate Normal RBC Morphology Normal Sodium 142 Potassium 3.6 Chloride 108 H Carbon Dioxide 23 Anion Gap 15 BUN 9 Creatinine 1.2 Est GFR ( Amer) > 60 Est GFR (Non-Af Amer) > 60 Random Glucose 93 Calcium 8.4 Total Bilirubin 0.4 AST 16 L D ALT 24 Alkaline Phosphatase 90 Total Protein 6.2 L Albumin 3.1 L D Globulin 3.1 Albumin/Globulin Ratio 1.0 Assessment & Plan - Assessment and Plan (Free Text) Assessment: 22 y/o male with 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 Rosales Labs and vitals reviewed- afebrile, WBC 40.8 Pt to continue on Zosyn and Rocephin as per ID for pyelonephritis Aseptic excisional debridement of hyperkeratotic rim of ulcer down to healthy skin with sterile #10 blade Dressed R foot with betadine and DSD and paper tape (pt relates allergic rxn to regular clear tape) Ordered Xrays of R foot Podiatry to continue to follow while in house Thank you for this consult
[2017-03-21] MEDS: Alum-Mag Hydrox-Simethicone Susp (30 mL) PO PRN (16:56)
[2017-03-22] MEDS: Piperacillin/Tazobact 3.375 GM in Sodium Chloride 0.9% 100 ML IVPB SCH ×3 (04:11→15:32)
[2017-03-22 05:32] LABS: BASO # 0.1 K/uL (0.0-0.2); BASO % 0.4 % (0.0-2.0); EOS # 0.3 K/uL (0.0-0.7); EOS % 1.1 % (0.0-4.0); HEMATOCRIT 45.1 % (35.0-51.0); LYMPH # 3.2 K/uL (1.0-4.3); LYMPH % 10.4 % (20.0-40.0); MEAN CELL VOLUME 91.1 fl (80.0-94.0); MEAN CORPUSCULAR HEMOGLOBIN 29.7 pg (27.0-31.0); MEAN CORPUSCULAR HGB CONC 32.6 g/dL (33.0-37.0); MEAN PLATELET VOLUME 7.9 fl (7.2-11.7); MONO # 1.4 K/uL (0.0-0.8); MONO % 4.7 % (0.0-10.0); NEUT # 25.8 K/uL (1.8-7.0); NEUT % 83.4 % (50.0-75.0); WHITE BLOOD COUNT 30.9 K/uL (4.8-10.8)
--- NOTE | 2017-03-22 08:23 | CP.PCM.PN ---
Subjective - Date & Time of Evaluation Date of Evaluation: 03/22/17 Time of Evaluation: 08:21 - Subjective Subjective: 22 y/o male seen at bedside for right foot plantar ulceration sub met 4. Pt is not experiencing any pain in the foot at this time. Pt denies any acute events overnight. Patient denies F/C/N/V at this time, and states he is feeling better than when he was admitted. No other pedal complaints at this time. Objective - Vital Signs/Intake and Output Vital Signs (last 24 hours): Temp Pulse Resp BP Pulse Ox 97.7 F 102 H 18 102/66 100 03/22/17 05:31 03/22/17 05:31 03/22/17 05:31 03/22/17 05:31 03/22/17 05:31 Intake and Output: 03/22/17 03/22/17 06:59 18:59 Intake Total 2950 Output Total 1975 Balance 975 - Medications Medications: Current Medications Acetaminophen (Tylenol 325mg Tab) 650 mg PO Q6 PRN PRN Reason: Fever >100.4 F Last Admin: 03/21/17 21:58 Dose: 650 mg Al Hydrox/Mg Hydrox/Simethicone (Maalox Plus 30 Ml) 30 ml PO Q6 PRN PRN Reason: Indigestion / Heartburn Last Admin: 03/21/17 16:56 Dose: 30 ml Alprazolam (Xanax) 0.5 mg PO Q8 PRN PRN Reason: Anxiety Last Admin: 03/21/17 19:48 Dose: 0.5 mg Cholecalciferol (Vitamin D) 1,000 iu PO DAILY [facility] Last Admin: 03/21/17 09:00 Dose: 1,000 iu Docusate Sodium (Colace) 100 mg PO BID PRN PRN Reason: Constipation Last Admin: 03/20/17 21:17 Dose: 100 mg Enoxaparin Sodium (Lovenox) 40 mg SC DAILY [facility] PRN Reason: Protocol Folic Acid (Folic Acid) 1 mg PO DAILY [facility] Last Admin: 03/21/17 08:58 Dose: 1 mg Ceftriaxone Sodium 1 gm/ (Sodium Chloride) 100 mls @ 100 mls/hr IVPB DAILY [facility] Last Admin: 03/21/17 09:01 Dose: 100 mls/hr Sodium Chloride (Sodium Chloride 0.9%) 1,000 mls @ 250 mls/hr IV .Q4H [facility] Last Admin: 03/21/17 19:49 Dose: 250 mls/hr Piperacillin Sod/Tazobactam (Sod 3.375 gm/ Sodium Chloride) 100 mls @ 100 mls/ hr IVPB Q6 [facility] Last Admin: 03/22/17 04:11 Dose: 100 mls/hr Ketorolac Tromethamine (Toradol) 15 mg IVP Q6 PRN PRN Reason: Pain, moderate (4-7) Lactulose (Enulose) 20 gm PO DAILY [facility] Metoprolol Tartrate (Lopressor) 25 mg PO DAILY [facility] Last Admin: 03/21/17 09:11 Dose: 25 mg Ondansetron HCl (Zofran Inj) 4 mg IVP Q6 PRN PRN Reason: Nausea/Vomiting Last Admin: 03/20/17 00:42 Dose: 4 mg Potassium Chloride (K-Dur 20 Meq Er Tab) 20 meq PO BID [facility] Last Admin: 03/21/17 16:55 Dose: 20 meq - Labs Labs: 03/22/17 04:40 03/21/17 12:14 - Constitutional Appears: Well, Non-toxic, No Acute Distress - Extremities Exam Additional comments: RLE focused exam: Vasc: DP/PT pulses are palpable 2/4. Temperature gradient warm to cool. CFT < 3 sec to all digits. No pedal edema. Derm: Hyperpigmentation noted along lateral aspect of foot at site of prior skin graft. 1.1cm x 0.5cm x 0.4cm ulceration noted to plantar aspect of sub met 4. Hyperkeratotic rim noted with soft tissue exposure through ulcer opening. Serous drainage expressed from wound. No tunneling, no malodor, no purulence, no undermining, no surrounding erythema, no cellulitic changes. 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 Rosales Labs and vitals reviewed- afebrile, WBC 30.9 Pt to continue on Zosyn and Rocephin as per ID for pyelonephritis Dressed R foot with betadine and DSD and paper tape (pt relates allergic rxn to regular clear tape) X-rays of R foot still pending Podiatry to continue to follow while in house
[2017-03-22] MEDS: Potassium Chloride 20 mEq ER Tab PO SCH ×2 (09:05→17:00)
[2017-03-22] MEDS: Enoxaparin 40 mg Syringe SC SCH (09:08)
[2017-03-22] MEDS: Sodium Chloride 0.9% 1,000 ML IV SCH ×3 (09:10→17:00)
[2017-03-22] MEDS: Alum-Mag Hydrox-Simethicone Susp (30 mL) PO PRN ×2 (09:14→17:09)
--- NOTE | 2017-03-22 14:02 | CP.PCM.PN ---
Subjective - Date & Time of Evaluation Date of Evaluation: 03/22/17 Time of Evaluation: 13:00 - Subjective Subjective: Pt was febrile last night, no fever today Scrotal pain and swelling better Leukocytosis trending down - 30 from 48K denies flank pain no CP' no SOB Objective - Vital Signs/Intake and Output Vital Signs (last 24 hours): Temp Pulse Resp BP Pulse Ox 99.2 F 87 20 118/83 100 03/22/17 12:27 03/22/17 12:27 03/22/17 12:27 03/22/17 12:27 03/22/17 12:27 Intake and Output: 03/22/17 03/22/17 06:59 18:59 Intake Total 2950 Output Total 1975 Balance 975 - Medications Medications: Current Medications Acetaminophen (Tylenol 325mg Tab) 650 mg PO Q6 PRN PRN Reason: Fever >100.4 F Last Admin: 03/21/17 21:58 Dose: 650 mg Al Hydrox/Mg Hydrox/Simethicone (Maalox Plus 30 Ml) 30 ml PO Q6 PRN PRN Reason: Indigestion / Heartburn Last Admin: 03/22/17 09:14 Dose: 30 ml Alprazolam (Xanax) 0.5 mg PO Q8 PRN PRN Reason: Anxiety Last Admin: 03/21/17 19:48 Dose: 0.5 mg Cholecalciferol (Vitamin D) 1,000 iu PO DAILY [facility] Last Admin: 03/22/17 09:07 Dose: 1,000 iu Docusate Sodium (Colace) 100 mg PO BID PRN PRN Reason: Constipation Last Admin: 03/20/17 21:17 Dose: 100 mg Enoxaparin Sodium (Lovenox) 40 mg SC DAILY [facility] PRN Reason: Protocol Last Admin: 03/22/17 09:08 Dose: 40 mg Folic Acid (Folic Acid) 1 mg PO DAILY [facility] Last Admin: 03/22/17 09:05 Dose: 1 mg Ceftriaxone Sodium 1 gm/ (Sodium Chloride) 100 mls @ 100 mls/hr IVPB DAILY [facility] Last Admin: 03/22/17 09:03 Dose: 100 mls/hr Sodium Chloride (Sodium Chloride 0.9%) 1,000 mls @ 250 mls/hr IV .Q4H [facility] Last Admin: 03/22/17 09:10 Dose: 250 mls/hr Piperacillin Sod/Tazobactam (Sod 3.375 gm/ Sodium Chloride) 100 mls @ 100 mls/ hr IVPB Q6 [facility] Last Admin: 03/22/17 09:07 Dose: 100 mls/hr Ketorolac Tromethamine (Toradol) 15 mg IVP Q6 PRN PRN Reason: Pain, moderate (4-7) Lactulose (Enulose) 20 gm PO DAILY [facility] Last Admin: 03/22/17 09:06 Dose: 20 gm Metoprolol Tartrate (Lopressor) 25 mg PO DAILY [facility] Last Admin: 03/22/17 09:06 Dose: 25 mg Ondansetron HCl (Zofran Inj) 4 mg IVP Q6 PRN PRN Reason: Nausea/Vomiting Last Admin: 03/20/17 00:42 Dose: 4 mg Potassium Chloride (K-Dur 20 Meq Er Tab) 20 meq PO BID [facility] Last Admin: 03/22/17 09:05 Dose: 20 meq - Labs Labs: 03/22/17 04:40 03/21/17 12:14 - Constitutional Appears: No Acute Distress - Head Exam Head Exam: NORMAL INSPECTION, NORMOCEPHALIC - Eye Exam Eye Exam: EOMI, Normal appearance, PERRL Pupil Exam: NORMAL ACCOMODATION - ENT Exam ENT Exam: Mucous Membranes Moist, Normal External Ear Exam - Neck Exam Neck Exam: Full ROM. absent: Meningismus - Respiratory Exam Respiratory Exam: NORMAL BREATHING PATTERN. absent: Rales, Wheezes, Respiratory Distress - Cardiovascular Exam Cardiovascular Exam: REGULAR RHYTHM, +S1, +S2 - GI/Abdominal Exam GI & Abdominal Exam: Soft, Normal Bowel Sounds. absent: Tenderness - Exam Exam: Scrotal Swelling (right), Testicular Tenderness - Extremities Exam Extremities Exam: Normal Capillary Refill. absent: Calf Tenderness, Pedal Edema - Back Exam Back Exam: absent: CVA tenderness (L), CVA tenderness (R) - Neurological Exam Neurological Exam: Alert, Awake Neuro motor strength exam: Left Upper Extremity: 5, Right Upper Extremity: 5 - Psychiatric Exam Psychiatric exam: Normal Affect, Normal Mood - Skin Skin Exam: Dry, Normal Color, Warm Assessment and Plan (1) Sepsis Status: Acute (2) Epididymo-orchitis Status: Acute (3) UTI (urinary tract infection) Status: Acute (4) Neurogenic bladder Status: Chronic (5) Fecal retention Status: Chronic (6) DVT prophylaxis Status: Acute - Assessment and Plan (Free Text) Assessment: 22 y/o gent with hx of Hydrocephalus s/p [employer] Shunt, Spina Bifida, Neurogenic Bladder s/p Bladder Augmentation Sx, on Intermittent Straight catheterization, hx of Recurrent UTI, came in bec of fever, right scrotal swelling and pain. (1) Sepsis sec to Epididymo-orchitis and UTI Status: Acute Marked leukocytosis to 40K now down to 30k Lactic acid normal Urine c/s : E coli sensitive to Zosyn ID consult check Urine for GC/Chlam HIV test: neg , RPR Pt denies any sexual contact Urology consult - discussed case , no surgical intervention for now , cont IV abx Discussed case with dr quinn - rec 2 wks total abx, cont IV ceftriaxone, d/c IV Zosyn , - change to Po Bactrim once WBC ct normal and afebrile. (2) Epididymo-orchitis Status: Acute Urology consult elevate testicles (3) UTI (urinary tract infection) Status: Acute E coli sensitive to IV Zosyn (4) Neurogenic bladder Status: Chronic Hx of Bladder Augementation On Straight catheterization q 3 at home (5) Fecal retention Status: Chronic Lactulose daily 6. Right foot plantar ulceration secondary to neuropathy ( POA) - Wound care Podiatry consulted (7) DVT prophylaxis Status: Acute Lovenox
[2017-03-23] MEDS: Piperacillin/Tazobact 3.375 GM in Sodium Chloride 0.9% 100 ML IVPB SCH ×5 (00:08→21:24)
[2017-03-23] MEDS: Alum-Mag Hydrox-Simethicone Susp (30 mL) PO PRN (00:23)
[2017-03-23] MEDS: Sodium Chloride 0.9% 1,000 ML IV SCH ×8 (00:59→19:52)
[2017-03-23 06:51] LABS: BASO # 0.1 K/uL (0.0-0.2); BASO % 0.4 % (0.0-2.0); EOS # 0.2 K/uL (0.0-0.7); EOS % 1.3 % (0.0-4.0); HEMATOCRIT 39.8 % (35.0-51.0); LYMPH # 2.4 K/uL (1.0-4.3); LYMPH % 17.1 % (20.0-40.0); MEAN CELL VOLUME 90.6 fl (80.0-94.0); MEAN PLATELET VOLUME 7.7 fl (7.2-11.7); MONO # 1.2 K/uL (0.0-0.8); MONO % 8.3 % (0.0-10.0); NEUT # 10.4 K/uL (1.8-7.0); NEUT % 72.9 % (50.0-75.0); RED CELL DISTRIBUTION WIDTH 14.1 % (11.5-14.5); WHITE BLOOD COUNT 14.3 K/uL (4.8-10.8)
--- NOTE | 2017-03-23 07:07 | CP.PCM.PN ---
Subjective - Date & Time of Evaluation Date of Evaluation: 03/23/17 Time of Evaluation: 10:18 - Subjective Subjective: 22 y/o male seen at bedside for right foot plantar ulceration sub met 4. Pt is not experiencing any pain in the foot. Pt denies any acute events overnight. Patient denies F/C/N/V at this time, and states he has been doing PT to re-gain his strength. No other pedal complaints at this time. Objective - Vital Signs/Intake and Output Vital Signs (last 24 hours): Temp Pulse Resp BP Pulse Ox 98.1 F 80 18 123/84 97 03/23/17 05:00 03/23/17 05:00 03/23/17 05:00 03/23/17 05:00 03/23/17 05:00 Intake and Output: 03/23/17 03/23/17 06:59 18:59 Intake Total 3290 Output Total 1940 Balance 1350 - Medications Medications: Current Medications Acetaminophen (Tylenol 325mg Tab) 650 mg PO Q6 PRN PRN Reason: Fever >100.4 F Last Admin: 03/21/17 21:58 Dose: 650 mg Al Hydrox/Mg Hydrox/Simethicone (Maalox Plus 30 Ml) 30 ml PO Q6 PRN PRN Reason: Indigestion / Heartburn Last Admin: 03/23/17 00:23 Dose: 30 ml Alprazolam (Xanax) 0.5 mg PO Q8 PRN PRN Reason: Anxiety Last Admin: 03/22/17 17:09 Dose: 0.5 mg Cholecalciferol (Vitamin D) 1,000 iu PO DAILY [facility] Last Admin: 03/22/17 09:07 Dose: 1,000 iu Docusate Sodium (Colace) 100 mg PO BID PRN PRN Reason: Constipation Last Admin: 03/20/17 21:17 Dose: 100 mg Enoxaparin Sodium (Lovenox) 40 mg SC DAILY [facility] PRN Reason: Protocol Last Admin: 03/22/17 09:08 Dose: 40 mg Folic Acid (Folic Acid) 1 mg PO DAILY [facility] Last Admin: 03/22/17 09:05 Dose: 1 mg Ceftriaxone Sodium 1 gm/ (Sodium Chloride) 100 mls @ 100 mls/hr IVPB DAILY [facility] Last Admin: 03/22/17 09:03 Dose: 100 mls/hr Sodium Chloride (Sodium Chloride 0.9%) 1,000 mls @ 250 mls/hr IV .Q4H [facility] Last Admin: 03/23/17 07:00 Dose: Not Given Piperacillin Sod/Tazobactam (Sod 3.375 gm/ Sodium Chloride) 100 mls @ 100 mls/ hr IVPB Q6 [facility] Last Admin: 03/23/17 03:58 Dose: 100 mls/hr Ketorolac Tromethamine (Toradol) 15 mg IVP Q6 PRN PRN Reason: Pain, moderate (4-7) Last Admin: 03/23/17 00:06 Dose: 15 mg Lactulose (Enulose) 20 gm PO DAILY [facility] Last Admin: 03/22/17 09:06 Dose: 20 gm Metoprolol Tartrate (Lopressor) 25 mg PO DAILY [facility] Last Admin: 03/22/17 09:06 Dose: 25 mg Ondansetron HCl (Zofran Inj) 4 mg IVP Q6 PRN PRN Reason: Nausea/Vomiting Last Admin: 03/20/17 00:42 Dose: 4 mg Potassium Chloride (K-Dur 20 Meq Er Tab) 20 meq PO BID [facility] Last Admin: 03/22/17 17:00 Dose: 20 meq - Labs Labs: 03/23/17 05:00 03/21/17 12:14 - Constitutional Appears: Well, Non-toxic, No Acute Distress - Extremities Exam Additional comments: RLE focused exam: Vasc: DP/PT pulses are palpable 2/4. Temperature gradient warm to cool. CFT < 3 sec to all digits. No pedal edema. Derm: Hyperpigmentation noted along lateral aspect of foot at site of prior skin graft. 1.1cm x 0.5cm x 0.4cm ulceration noted to plantar aspect of sub met 4. Fibrotic base noted to wound with fibrotic cap removed on wound dressing. Hyperkeratotic rim noted with soft tissue exposure through ulcer opening. Serous drainage expressed from wound when pressure applied to wound edges. No tunneling, no malodor, no purulence, no undermining, no surrounding erythema, no cellulitic changes. 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 Rosales Labs and vitals reviewed- afebrile, WBC 14.3 Pt to continue on Zosyn and Rocephin as per ID for pyelonephritis Dressed R foot with betadine and DSD and paper tape (pt relates allergic rxn to regular clear tape) X-rays of R foot still pending Podiatry to continue to follow while in house
[2017-03-23] MEDS: Potassium Chloride 20 mEq ER Tab PO SCH ×2 (08:21→16:01)
[2017-03-23] MEDS: Enoxaparin 40 mg Syringe SC SCH (08:22)
--- NOTE | 2017-03-23 08:28 | CON ---
DATE: HISTORY OF PRESENT ILLNESS: This 22-year-old boy, was admitted with testicular swelling on the right with a lot of amount of pain. The patient had a testicular ultrasound, which revealed an epididymal orchitis, possible abscess. The patient was given IV medication by ID physician. Post-medication, the patient on 03/22/2017, examination by Dr. Leal revealed minimal pain, mild swelling, no evidence of abscess on palpitation. The patient doing well with antibiotics and be followed again for probable discharge in the next day or two. Сергей Leal MD
--- NOTE | 2017-03-23 15:09 | RAD ---
PROCEDURE: Right Foot Radiographs. HISTORY: sub met 4 ulcer right foot COMPARISON: None. FINDINGS: BONES: No definite suspicious lytic or blastic changes appreciated within in this patient with a deformity of the right foot which may include absence of a metatarsal bone. For metatarsal bones are identified but there is adequate alignment from the 1st through 4th or 5th metatarsal at the level of the cuboid bone. Pain status post calcaneocuboid and talar middle cuneiform arthrodesis. The talar cuneiform arthrodesis screw is fractured. The calcaneocuboid arthrodesis screw is intact. Talocalcaneal fusion hardware appears intact as well. JOINTS: See above. SOFT TISSUES: Defect at the plantar soft tissues of the right foot is noted laterally suggestive of patient's known foot ulcer with no definite local periosteal reaction or lytic or blastic change along the adjacent distal mid metatarsal bone/proximal phalanx. Gross degenerate changes seen at the tibiotalar joint. OTHER FINDINGS: None. IMPRESSION: Complex findings as discussed above. No definite lytic or blastic change suggests osteomyelitis. MRI is available for follow-up if clinically warranted.
--- NOTE | 2017-03-23 15:44 | CP.PCM.PN ---
Subjective - Date & Time of Evaluation Date of Evaluation: 03/23/17 Time of Evaluation: 15:00 - Subjective Subjective: Patient remains afebrile today and has no complaints. He states he feels better , although still c/o swollen right testicle. It was explained to him and his mother who is present at bedside that it would take some time for the swelling to go down. He relates that the swelling has improved somewhat during the course of his stay. - Leukocytosis is continuing to trend down markedly, 30.9 yesterday -> 14.3 today - Patient denies any flank pain, fevers, chills, dysuria, frequency, CP, sob Objective - Vital Signs/Intake and Output Vital Signs (last 24 hours): Temp Pulse Resp BP Pulse Ox 97.8 F 79 18 113/69 99 03/23/17 12:38 03/23/17 12:38 03/23/17 12:38 03/23/17 12:38 03/23/17 12:38 Intake and Output: 03/23/17 03/23/17 06:59 18:59 Intake Total 3290 Output Total 1940 Balance 1350 - Medications Medications: Current Medications Acetaminophen (Tylenol 325mg Tab) 650 mg PO Q6 PRN PRN Reason: Fever >100.4 F Last Admin: 03/21/17 21:58 Dose: 650 mg Al Hydrox/Mg Hydrox/Simethicone (Maalox Plus 30 Ml) 30 ml PO Q6 PRN PRN Reason: Indigestion / Heartburn Last Admin: 03/23/17 00:23 Dose: 30 ml Alprazolam (Xanax) 0.5 mg PO Q8 PRN PRN Reason: Anxiety Last Admin: 03/22/17 17:09 Dose: 0.5 mg Cholecalciferol (Vitamin D) 1,000 iu PO DAILY [facility] Last Admin: 03/23/17 08:30 Dose: 1,000 iu Docusate Sodium (Colace) 100 mg PO BID PRN PRN Reason: Constipation Last Admin: 03/20/17 21:17 Dose: 100 mg Enoxaparin Sodium (Lovenox) 40 mg SC DAILY [facility] PRN Reason: Protocol Last Admin: 03/23/17 08:22 Dose: 40 mg Folic Acid (Folic Acid) 1 mg PO DAILY [facility] Last Admin: 03/23/17 08:21 Dose: 1 mg Ceftriaxone Sodium 1 gm/ (Sodium Chloride) 100 mls @ 100 mls/hr IVPB DAILY [facility] Last Admin: 03/23/17 08:22 Dose: 100 mls/hr Sodium Chloride (Sodium Chloride 0.9%) 1,000 mls @ 250 mls/hr IV .Q4H [facility] Last Admin: 03/23/17 11:59 Dose: 250 mls/hr Piperacillin Sod/Tazobactam (Sod 3.375 gm/ Sodium Chloride) 100 mls @ 100 mls/ hr IVPB Q6 [facility] Last Admin: 03/23/17 10:44 Dose: 100 mls/hr Ketorolac Tromethamine (Toradol) 15 mg IVP Q6 PRN PRN Reason: Pain, moderate (4-7) Last Admin: 03/23/17 00:06 Dose: 15 mg Lactulose (Enulose) 20 gm PO DAILY [facility] Last Admin: 03/23/17 08:21 Dose: 20 gm Metoprolol Tartrate (Lopressor) 25 mg PO DAILY [facility] Last Admin: 03/23/17 08:22 Dose: 25 mg Ondansetron HCl (Zofran Inj) 4 mg IVP Q6 PRN PRN Reason: Nausea/Vomiting Last Admin: 03/20/17 00:42 Dose: 4 mg Potassium Chloride (K-Dur 20 Meq Er Tab) 20 meq PO BID [facility] Last Admin: 03/23/17 08:21 Dose: 20 meq - Labs Labs: 03/23/17 05:00 03/21/17 12:14 - Head Exam Head Exam: ATRAUMATIC, NORMAL INSPECTION, NORMOCEPHALIC - Eye Exam Eye Exam: EOMI, Normal appearance Pupil Exam: NORMAL ACCOMODATION, PERRL - Neck Exam Neck Exam: Full ROM, Normal Inspection. absent: Lymphadenopathy - Respiratory Exam Respiratory Exam: Clear to Ausculation Bilateral, NORMAL BREATHING PATTERN - Cardiovascular Exam Cardiovascular Exam: REGULAR RHYTHM, +S1, +S2. absent: Murmur - GI/Abdominal Exam GI & Abdominal Exam: Soft, Normal Bowel Sounds. absent: Tenderness - Extremities Exam Extremities Exam: Full ROM, Normal Capillary Refill, Normal Inspection. absent : Joint Swelling, Pedal Edema - Back Exam Back Exam: NORMAL INSPECTION. absent: CVA tenderness (L), CVA tenderness (R) - Neurological Exam Neurological Exam: Alert, Awake, CN II-XII Intact, Normal Gait, Oriented x3 - Psychiatric Exam Psychiatric exam: Normal Affect, Normal Mood Assessment and Plan - Assessment and Plan (Free Text) Plan: 22 y/o gent with hx of Hydrocephalus s/p [employer] Shunt, Spina Bifida, Neurogenic Bladder s/p Bladder Augmentation Sx, on Intermittent Straight catheterization, hx of Recurrent UTI, came in bec of fever, right scrotal swelling and pain. (1) Sepsis, resolving, sec to Epididymo-orchitis and UTI Status: Acute Marked leukocytosis to 40K now down to 30k Lactic acid normal check Urine for GC/Chlam HIV test: neg , RPR Pt denies any sexual contact Urology consult - discussed case , no surgical intervention for now , cont IV abx Discussed case with dr quinn - rec 2 wks total abx, cont IV ceftriaxone, d/c IV Zosyn , - change to Po Bactrim once WBC ct normal and afebrile. (2) Epididymo-orchitis Status: Acute Urology consult elevate testicles (3) UTI (urinary tract infection) Status: Acute As per infectious disease, D/C zosyn, continue Rocephin 1 gram IVPB daily (4) Neurogenic bladder Status: Chronic Hx of Bladder Augementation On Straight catheterization q 3 at home (5) Fecal retention Status: Chronic Lactulose daily 6. Right foot plantar ulceration secondary to neuropathy ( POA) - Wound care Podiatry has seen and evaluated the patient - Foot X rays pending (7) DVT prophylaxis Status: Acute Lovenox
[2017-03-24] MEDS: Sodium Chloride 0.9% 1,000 ML IV SCH ×4 (01:26→12:44)
[2017-03-24] MEDS: Piperacillin/Tazobact 3.375 GM in Sodium Chloride 0.9% 100 ML IVPB SCH ×3 (03:42→17:10)
[2017-03-24 05:33] VITALS: RESP 20
[2017-03-24 06:50] LABS: HEMATOCRIT 39.8 % (35.0-51.0); MEAN CELL VOLUME 90.8 fl (80.0-94.0); MEAN CORPUSCULAR HEMOGLOBIN 29.6 pg (27.0-31.0); MEAN CORPUSCULAR HGB CONC 32.5 g/dL (33.0-37.0); RED CELL DISTRIBUTION WIDTH 14.4 % (11.5-14.5); WHITE BLOOD COUNT 11.2 K/uL (4.8-10.8)
--- NOTE | 2017-03-24 08:08 | CP.PCM.PN ---
Subjective - Date & Time of Evaluation Date of Evaluation: 03/24/17 Time of Evaluation: 08:08 - Subjective Subjective: 22 y/o male seen at bedside for right foot plantar ulceration sub met 4. Pt is not experiencing any pain in the foot due to the fact he does not have much sensation there. Pt denies any acute events overnight. Patient denies F/C/N/V at this time. Pt states he is still having some flank pain but overall he feels better. No other pedal complaints at this time. Objective - Vital Signs/Intake and Output Vital Signs (last 24 hours): Temp Pulse Resp BP Pulse Ox 97.6 F 70 20 119/82 100 03/24/17 05:32 03/24/17 05:32 03/24/17 05:32 03/24/17 05:32 03/24/17 05:32 - Medications Medications: Current Medications Acetaminophen (Tylenol 325mg Tab) 650 mg PO Q6 PRN PRN Reason: Fever >100.4 F Last Admin: 03/21/17 21:58 Dose: 650 mg Al Hydrox/Mg Hydrox/Simethicone (Maalox Plus 30 Ml) 30 ml PO Q6 PRN PRN Reason: Indigestion / Heartburn Last Admin: 03/23/17 00:23 Dose: 30 ml Alprazolam (Xanax) 0.5 mg PO Q8 PRN PRN Reason: Anxiety Last Admin: 03/22/17 17:09 Dose: 0.5 mg Cholecalciferol (Vitamin D) 1,000 iu PO DAILY [facility] Last Admin: 03/23/17 08:30 Dose: 1,000 iu Docusate Sodium (Colace) 100 mg PO BID PRN PRN Reason: Constipation Last Admin: 03/20/17 21:17 Dose: 100 mg Enoxaparin Sodium (Lovenox) 40 mg SC DAILY [facility] PRN Reason: Protocol Last Admin: 03/23/17 08:22 Dose: 40 mg Folic Acid (Folic Acid) 1 mg PO DAILY [facility] Last Admin: 03/23/17 08:21 Dose: 1 mg Ceftriaxone Sodium 1 gm/ (Sodium Chloride) 100 mls @ 100 mls/hr IVPB DAILY [facility] Last Admin: 03/23/17 08:22 Dose: 100 mls/hr Sodium Chloride (Sodium Chloride 0.9%) 1,000 mls @ 250 mls/hr IV .Q4H [facility] Last Admin: 03/24/17 06:50 Dose: 250 mls/hr Piperacillin Sod/Tazobactam (Sod 3.375 gm/ Sodium Chloride) 100 mls @ 100 mls/ hr IVPB Q6 [facility] Last Admin: 03/24/17 03:42 Dose: 100 mls/hr Ketorolac Tromethamine (Toradol) 15 mg IVP Q6 PRN PRN Reason: Pain, moderate (4-7) Last Admin: 03/23/17 00:06 Dose: 15 mg Lactulose (Enulose) 20 gm PO DAILY [facility] Last Admin: 03/23/17 08:21 Dose: 20 gm Metoprolol Tartrate (Lopressor) 25 mg PO DAILY [facility] Last Admin: 03/23/17 08:22 Dose: 25 mg Ondansetron HCl (Zofran Inj) 4 mg IVP Q6 PRN PRN Reason: Nausea/Vomiting Last Admin: 03/23/17 19:20 Dose: 4 mg Potassium Chloride (K-Dur 20 Meq Er Tab) 20 meq PO BID [facility] Last Admin: 03/23/17 16:01 Dose: 20 meq - Labs Labs: 03/24/17 05:50 03/21/17 12:14 - Constitutional Appears: Well, Non-toxic, No Acute Distress - Extremities Exam Additional comments: RLE focused exam: Vasc: DP/PT pulses are palpable 2/4. Temperature gradient warm to cool. CFT < 3 sec to all digits. No pedal edema. Derm: 1.0cm x 0.4cm x 0.4cm ulceration noted to plantar aspect of sub met 4. Fibrotic base noted to wound. Thin mildly hyperkeratotic rim noted with soft tissue exposure through ulcer opening. Minimal thin serous drainage expressed from wound when pressure applied to wound edges. No tunneling, no malodor, no purulence, no undermining, no surrounding erythema, no cellulitic changes. Hyperpigmentation noted along lateral aspect of foot at site of prior skin graft. 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 Rosales Labs and vitals reviewed- afebrile, WBC 11.2 Pt to continue on Zosyn and Rocephin as per ID for pyelonephritis Dressed R foot with betadine and DSD and paper tape (pt relates allergic rxn to regular clear tape) X-rays of R foot - no definite lytic or blastic changes, (-) for OM Podiatry to continue to follow while in house
[2017-03-24] MEDS: Potassium Chloride 20 mEq ER Tab PO SCH ×2 (09:25→17:12)
[2017-03-24] MEDS: Enoxaparin 40 mg Syringe SC SCH (09:26)
--- NOTE | 2017-03-24 10:15 | CP.PCM.DIS ---
Provider - Provider Date of Admission: 03/19/17 10:51 Attending physician: Andrei Meredith MD Primary care physician: Dr. Monroe Consults: Podiatry Id consult urology consult Time Spent in preparation of Discharge (in minutes): 20 Hospital Course - Lab Results Lab Results: Most Recent Lab Values WBC 11.2 K/uL (4.8-10.8) H 03/24/17 05:50 RBC 4.38 Mil/uL (4.40-5.90) L 03/24/17 05:50 Hgb 12.9 g/dL (12.0-18.0) 03/24/17 05:50 Hct 39.8 % (35.0-51.0) 03/24/17 05:50 MCV 90.8 fl (80.0-94.0) 03/24/17 05:50 MCH 29.6 pg (27.0-31.0) 03/24/17 05:50 MCHC 32.5 g/dL (33.0-37.0) L 03/24/17 05:50 RDW 14.4 % (11.5-14.5) 03/24/17 05:50 Plt Count 300 K/uL (130-400) 03/24/17 05:50 MPV 7.7 fl (7.2-11.7) 03/23/17 05:00 Neut % (Auto) 72.9 % (50.0-75.0) 03/23/17 05:00 Lymph % (Auto) 17.1 % (20.0-40.0) L 03/23/17 05:00 [place] % (Auto) 8.3 % (0.0-10.0) 03/23/17 05:00 Eos % (Auto) 1.3 % (0.0-4.0) 03/23/17 05:00 Baso % (Auto) 0.4 % (0.0-2.0) 03/23/17 05:00 Neut # 10.4 K/uL (1.8-7.0) H 03/23/17 05:00 Lymph # 2.4 K/uL (1.0-4.3) 03/23/17 05:00 [place] # 1.2 K/uL (0.0-0.8) H 03/23/17 05:00 Eos # 0.2 K/uL (0.0-0.7) 03/23/17 05:00 Baso # 0.1 K/uL (0.0-0.2) 03/23/17 05:00 Neutrophils % (Manual) 82 % (42-75) H 03/21/17 12:14 Band Neutrophils % 5 % (0-2) H 03/21/17 12:14 Lymphocytes % (Manual) 11 % (20-50) L 03/21/17 12:14 Monocytes % (Manual) 1 % (0-10) 03/21/17 12:14 Eosinophils % (Manual) 1 % (0-7) 03/21/17 12:14 Platelet Estimate Normal (NORMAL) 03/21/17 12:14 RBC Morphology Normal (NORMAL) 03/21/17 12:14 pO2 21 mm/Hg (30-55) L 03/19/17 08:59 VBG pH 7.36 (7.32-7.43) 03/19/17 08:59 VBG pCO2 46 mmHg (40-60) 03/19/17 08:59 VBG HCO3 22.8 mmol/L 03/19/17 08:59 VBG Total CO2 27.4 mmol/L (22-28) 03/19/17 08:59 VBG O2 Sat (Calc) 37.9 % (40-65) L 03/19/17 08:59 VBG Base Excess -0.1 mmol/L (0.0-2.0) L 03/19/17 08:59 VBG Potassium 3.2 mmol/L (3.6-5.2) L 03/19/17 08:59 A-a O2 Difference 71.0 mm/Hg 03/19/17 08:59 Sodium 139.0 mmol/L (132-148) 03/19/17 08:59 Chloride 101.0 mmol/L (98-107) 03/19/17 08:59 Glucose 97 mg/dL (75-110) 03/19/17 08:59 Lactate 1.4 mmol/L (0.7-2.1) 03/19/17 08:59 FiO2 21.0 % 03/19/17 08:59 Crit Value Called To Alek nash 03/19/17 08:59 Crit Value Called By 15 03/19/17 08:59 Crit Value Read Back Y 03/19/17 08:59 Blood Gas Notified Time 915 03/19/17 08:59 Sodium 142 mmol/l (132-148) 03/21/17 12:14 Potassium 3.6 MMOL/L (3.6-5.0) 03/21/17 12:14 Chloride 108 mmol/L (98-107) H 03/21/17 12:14 Carbon Dioxide 23 mmol/L (22-30) 03/21/17 12:14 Anion Gap 15 (10-20) 03/21/17 12:14 BUN 9 mg/dl (9-20) 03/21/17 12:14 Creatinine 1.2 mg/dL (0.8-1.5) 03/21/17 12:14 Est GFR ( Amer) > 60 03/21/17 12:14 Est GFR (Non-Af Amer) > 60 03/21/17 12:14 Random Glucose 93 mg/dL (75-110) 03/21/17 12:14 Calcium 8.4 mg/dL (8.4-10.2) 03/21/17 12:14 Phosphorus 2.5 mg/dl (2.5-4.5) 03/19/17 07:20 Magnesium 1.7 MG/DL (1.6-2.3) 03/19/17 07:20 Total Bilirubin 0.4 mg/dl (0.2-1.3) 03/21/17 12:14 AST 16 U/L (17-59) L D 03/21/17 12:14 ALT 24 U/L (21-72) 03/21/17 12:14 Alkaline Phosphatase 90 U/L (38-126) 03/21/17 12:14 Total Protein 6.2 G/DL (6.3-8.2) L 03/21/17 12:14 Albumin 3.1 g/dL (3.5-5.0) L D 03/21/17 12:14 Globulin 3.1 gm/dL (2.2-3.9) 03/21/17 12:14 Albumin/Globulin Ratio 1.0 (1.0-2.1) 03/21/17 12:14 Venous Blood Potassium 3.2 mmol/L (3.6-5.2) L 03/19/17 08:59 RPR Nonreactive (NONREACTIVE) 03/21/17 12:14 HIV 1&2 Antibody Screen Negative (NEGATIVE) 03/21/17 12:14 - Hospital Course Hospital Course: 22 y/o gent with hx of Hydrocephalus s/p INSPECTOR REPAIRER Shunt, Spina Bifida, Neurogenic Bladder s/p Bladder Augmentation Sx, on Intermittent Straight catheterization, hx of Recurrent UTI, came in bec of fever, right scrotal swelling and pain.Patient was diagonsed with sepsis secondary to epididimo orchitis and UTI and started on Zosyn IV. urology and Id were consulted . His urie cultures were reporte positive for E. Coli pansensitive. IV antibiotics changed to rocephin IV Patient clinically improved his WBc count decreased from 40 K -- 12 k, remained afebrile > 48 hours andf clinically feeling better. as per urology there is no interventions to be done and recommended continuation of antibiotics, Discussed with ID and recommended to discharge on Po Bactrim for 2 weeks. Will discharge patient home on Bactrim and Cipro PO 1.Sepsis, resolving, sec to Epididymo-orchitis and UTI Acute patient had leukocytosis to 40K now down to 12 k , afebrile > 48 hours Lactic acid normalized HIV test: neg , RPR urine cx positive for E. Coli mcneil sensitive Pt denies any sexual contact Urology consult - discussed case , no surgical intervention for now , cont IV abx Discussed case with Dr quinn - rec 2 wks total abx, cont IV ceftriaxone, d/c IV Zosyn Will d/c on Bactrim Po and Cipro Po 2. Epididymo-orchitis Acute Urology consulted elevate testicles continue antibiotics 3. UTI (urinary tract infection) Acute As per infectious disease, D/C zosyn, continue Rocephin 1 gram IVPB daily Will d/c on bactrim and Cipro PO 4. Neurogenic bladder Chronic Hx of Bladder Augementation On Straight catheterization q 3 at home 5. Fecal retention Chronic Lactulose daily 6. 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 Spina Bifida chronic 8. DVT prophylaxis Acute Lovenox Discharge Exam - Head Exam Head Exam: ATRAUMATIC, NORMAL INSPECTION, NORMOCEPHALIC - Eye Exam Eye Exam: EOMI, Normal appearance, PERRL Pupil Exam: NORMAL ACCOMODATION - ENT Exam ENT Exam: Mucous Membranes Moist, Normal Exam - Neck Exam Neck exam: Full Rom, Normal Inspection - Respiratory Exam Respiratory Exam: Clear to PA & Lateral, NORMAL BREATHING PATTERN. absent: Rales, Rhonchi, Wheezes - Cardiovascular Exam Cardiovascular Exam: REGULAR RHYTHM, RRR, +S1, +S2. absent: JVD - GI/Abdominal Exam GI & Abdominal Exam: Normal Bowel Sounds, Soft. absent: Distended, Guarding, Rebound, Tenderness - Rectal Exam Rectal Exam: Deferred - Exam Exam: Scrotal Swelling (more on the right side ) - Extremities Exam Extremities exam: normal capillary refill, normal inspection, pedal pulses present - Back Exam Back exam: NORMAL INSPECTION - Neurological Exam Neurological exam: Alert, CN II-XII Intact, Oriented x3 - Psychiatric Exam Psychiatric exam: Normal Affect, Normal Mood - Skin Skin Exam: Dry, Intact, Normal Color, Warm Discharge Plan - Discharge Medications Prescriptions: Ciprofloxacin [Cipro] 500 mg PO BID #14 tab Sulfamethoxazole/Trimethoprim [Bactrim DS 800 mg-160 mg] 1 tab PO BID #28 tab - Follow Up Plan Condition: STABLE Disposition: HOME/ ROUTINE Patient education suggested?: Yes Referrals: Hernán Monroe MD [Staff Provider] -
[2017-03-24 16:11] VITALS: BP 133/83; PULSE 69; TEMP 97.3; O2SAT 97
== END 2017-03-24 18:01 | disposition home or self-care (01) | DRG 901 ==
LOC: H.ER 06:42 → H.ERHOLD 10:51 → H.TEL 13:02
DX: A41.9 Sepsis, unspecified organism (principal); E23.2 Diabetes insipidus; G91.9 Hydrocephalus, unspecified; E87.6 Hypokalemia; K56.41 Fecal impaction; N12 Tubulo-interstitial nephritis, not specified as acute or chronic; N31.9 Neuromuscular dysfunction of bladder, unspecified; L97.419 Non-pressure chronic ulcer of right heel and midfoot with unspecified severity; Q05.4 Unspecified spina bifida with hydrocephalus; T83.511A Infection and inflammatory reaction due to indwelling urethral catheter, initial encounter; G62.9 Polyneuropathy, unspecified; I10 Essential (primary) hypertension; F41.9 Anxiety disorder, unspecified; N30.90 Cystitis, unspecified without hematuria; N39.498 Other specified urinary incontinence; N45.3 Epididymo-orchitis; Z79.899 Other long term (current) drug therapy; Z90.49 Acquired absence of other specified parts of digestive tract; Z98.2 Presence of cerebrospinal fluid drainage device; K59.00 Constipation, unspecified; M54.9 Dorsalgia, unspecified; R00.0 Tachycardia, unspecified; R00.2 Palpitations

== ENCOUNTER 2018-12-05 08:53 | Inpatient (IN) | payer OTHER ==
[2018-12-05 09:06] VITALS: BMI 28.0
[2018-12-05 10:32] LABS: BASO % 0.3 % (0.0-2.0); EOS # 0.1 K/uL (0.0-0.7); EOS % 0.7 % (0.0-4.0); HEMOGLOBIN 18.1 g/dL (12.0-18.0); LYMPH # 1.9 K/uL (1.0-4.3); MEAN CELL VOLUME 88.7 fl (80.0-94.0); MEAN CORPUSCULAR HEMOGLOBIN 29.7 pg (27.0-31.0); MEAN CORPUSCULAR HGB CONC 33.5 g/dL (33.0-37.0); MEAN PLATELET VOLUME 8.2 fl (7.2-11.7); MONO # 0.9 K/uL (0.0-0.8); MONO % 7.1 % (0.0-10.0); NEUT # 10.4 K/uL (1.8-7.0); NEUT % 77.9 % (50.0-75.0); NRBC % 0.1 % (0.0-0.0); RBC 6.07 Mil/uL (4.40-5.90); RED CELL DISTRIBUTION WIDTH 13.6 % (11.5-14.5); WHITE BLOOD COUNT 13.4 K/uL (4.8-10.8)
[2018-12-05 10:38] LABS: VENOUS BLOOD GAS BASE EXCESS 3.7 mmol/L (0.0-2.0); VENOUS BLOOD GAS PCO2 54 mmHg (40-60); VENOUS BLOOD GAS PO2 29 mm/Hg (30-55); VENOUS BLOOD PH 7.36 (7.32-7.43)
[2018-12-05 10:52] LABS: ALB/GLOB RATIO 1.1 (1.0-2.1); ALT/SGPT 31 U/L (21-72); AST/SGOT 23 U/L (17-59); BLOOD UREA NITROGEN 22 mg/dl (9-20); CALCIUM 10.3 mg/dL (8.4-10.2); GFR NON-AFRICAN AMERICAN > 60
--- NOTE | 2018-12-05 11:33 | US ---
Date of service: 12/05/2018 HISTORY: R testicular pain/swelling hx spinabifida TECHNIQUE: Realtime sonography through the scrotum with color and doppler flow. COMPARISON: None Available. FINDINGS: RIGHT TESTICLE: Measures 3.6 x 2.2 x 1.8 cm. There is heterogeneous echotexture present. There is flow to the right testicle noted that appears grossly similar to that in the left testicle. RIGHT EPIDIDYMIS: Epididymal head measures 1.1 x 0.9 x 1.5 cm. Grossly unremarkable appearance with normal flow. LEFT TESTICLE: Measures 3.4 x 2.3 x 1.8 cm. Normal echotexture and flow. LEFT EPIDIDYMIS: Epididymal head measures 0.8 x 0.9 x 0.9 cm. There is near the right epididymal tail and/or lower portion of the testicle and extratesticular fluid like focus the that is either a exophytic right epididymal tail cyst or a focal area of right hydrocele. This area measures 1.1 x 0.9 x 1.5 cm. HYDROCELE: Near the lower pole the right testicle. And also in close proximity with the right epididymal tail. Focal inferior right extratesticular hydrocele here versus exophytic right epididymal tail cyst. VARICOCELE: None. OTHER FINDINGS: None. IMPRESSION: Right intratesticular fairly diffuse heterogeneity well with flow similar to that in the left testicle. No focal discrete intratesticular mass noted. Findings are nonspecific prior episode of right orchitis or other inflammatory change here possible. No current increased vascularity to suggest an acute inflammatory hyperemic process is noted. The flow here compared to the left testicle appears symmetrical no gross evidence of current testicular torsion. Continued close surveillance is advised. Near the lower pole of the right testicle and also in close proximity with the right epididymal tail there is a focal fluid collection-a focal hydrocele here versus an exophytic right epididymal tail cysts are favored considerations.
[2018-12-05] MEDS ORDERED: Piperacillin/Tazobact 4.5 GM in Sodium Chloride 0.9% 100 ML IVPB STA (13:04)
--- NOTE | 2018-12-05 13:17 | ED PDOC ---
HPI: Male Pain Time Seen by Provider: 12/05/18 09:10 Chief Complaint (Nursing): Male Genitourinary Chief Complaint (Provider): right testicular pain History Per: Patient History/Exam Limitations: no limitations Current Symptoms Are (Timing): Still Present Severity: Moderate Quality Of Discomfort: Dull Associated Symptoms: Fever, Chills, Loss Of Appetite Alleviating Factors: None Additional History Per: Family, Prior Records (admitted 2016 for UTI/sepsis) Additional Complaint(s): 23yo male hx spina bifida, self-catheterizes urine, presents c/o R testicular pain and swelling with mild R flank pain ongoing intermittently but worsening over 1-2 weeks. Had tactile fever yesterday. Denies cough, vomiting, diarrhhea or headache. Pt and mother concerned as prior admitted for "infection in testicle". Denies sexual activity. 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 - Family History Family History: States: Unknown Family Hx - Living Arrangements Living Arrangements: With Family - Social History Current smoker - smoking cessation education provided: No - Immunization History Hx Tetanus Toxoid Vaccination: Yes Hx Influenza Vaccination: Yes Hx Pneumococcal Vaccination: Yes - Home Medications Home Medications: Ambulatory Orders Medication Instructions Recorded Docusate [Colace] 100 mg PO Q12 12/05/18 Enalapril Maleate [Vasotec] 10 mg PO DAILY 12/05/18 Escitalopram [Lexapro] 10 mg PO DAILY 12/05/18 Famotidine [Pepcid] 20 mg PO DAILY 12/05/18 Polyethylene Glycol 3350 [Miralax] 17 gm PO DAILY PRN 12/05/18 Sennosides [Senna Lax] 8.6 mg PO Q12 12/05/18 Sodium Bicarbonate Tab 1,300 mg PO Q12 12/05/18 hydroCHLOROthiazide [Microzide] 50 mg PO DAILY 12/05/18 - Allergies Allergies/Adverse Reactions: Allergies Allergy/AdvReac Type Severity Reaction Status Date / Time No Known Allergies Allergy Verified 06/12/16 11:18 Review of Systems Constitutional: Positive for: Fever, Chills Cardiovascular: Negative for: Chest Pain Respiratory: Negative for: Shortness of Breath Gastrointestinal: Negative for: Abdominal Pain Genitourinary Male: Positive for: Dysuria, Other (testicular pain) Musculoskeletal: Positive for: Back Pain Skin: Negative for: Rash, Lesions Neurological: Negative for: Weakness, Numbness, Headache Physical Exam - Reviewed Nursing Documentation Reviewed: Yes Vital Signs Reviewed: Yes - Physical Exam Appears: Positive for: Well, Non-toxic, No Acute Distress Head Exam: Positive for: ATRAUMATIC, NORMAL INSPECTION, NORMOCEPHALIC Skin: Positive for: Normal Color, Warm, DRY Eye Exam: Positive for: EOMI, Normal appearance, PERRL ENT: Positive for: Normal ENT Inspection Neck: Positive for: Normal, Painless ROM Cardiovascular/Chest: Positive for: Regular Rate, Rhythm Respiratory: Positive for: CNT, Normal Breath Sounds Gastrointestinal/Abdominal: Positive for: Normal Exam, Soft Male Genital Exam: Positive for: erythema, scrotum tenderness (R), testicular tenderness (R), other (uncircumscised). Negative for: inguinal tenderness, lesions Back: Positive for: Normal Inspection Extremity: Positive for: Normal ROM Neurological/Psych: Positive for: Awake, Alert, Normal Tone, Oriented, Other (baseline LE weakness) - Laboratory Results Result Diagrams: 12/05/18 10:15 12/05/18 10:15 Lab Results: pO2 29 mm/Hg (30-55) L 12/05/18 10:30 VBG pH 7.36 (7.32-7.43) 12/05/18 10:30 VBG pCO2 54 mmHg (40-60) 12/05/18 10:30 VBG HCO3 26.6 mmol/L 12/05/18 10:30 VBG Total CO2 32.2 mmol/L (22-28) H 12/05/18 10:30 VBG O2 Sat (Calc) 57.8 % (40-65) 12/05/18 10:30 VBG Base Excess 3.7 mmol/L (0.0-2.0) H 12/05/18 10:30 VBG Potassium 3.8 mmol/L (3.6-5.2) 12/05/18 10:30 Sodium 140.0 mmol/L (132-148) 12/05/18 10:30 Chloride 103.0 mmol/L (98-107) 12/05/18 10:30 Glucose 102 mg/dL (75-110) 12/05/18 10:30 Lactate 2.4 mmol/L (0.7-2.1) H 12/05/18 10:30 FiO2 21.0 % 12/05/18 10:30 Total Bilirubin 0.6 mg/dl (0.2-1.3) 12/05/18 10:15 AST 23 U/L (17-59) 12/05/18 10:15 ALT 31 U/L (21-72) 12/05/18 10:15 Alkaline Phosphatase 76 U/L (38-126) 12/05/18 10:15 Total Protein 9.5 G/DL (6.3-8.2) H 12/05/18 10:15 Albumin 5.0 g/dL (3.5-5.0) D 12/05/18 10:15 Globulin 4.4 gm/dL (2.2-3.9) H 12/05/18 10:15 Albumin/Globulin Ratio 1.1 (1.0-2.1) 12/05/18 10:15 - ECG O2 Sat by Pulse Oximetry: 99 Medical Decision Making Medical Decision Makin: FINDINGS: RIGHT TESTICLE: Measures 3.6 x 2.2 x 1.8 cm. There is heterogeneous echotexture present. There is flow to the right testicle noted that appears grossly similar to that in the left testicle. RIGHT EPIDIDYMIS: Epididymal head measures 1.1 x 0.9 x 1.5 cm. Grossly unremarkable appearance with normal flow. LEFT TESTICLE: Measures 3.4 x 2.3 x 1.8 cm. Normal echotexture and flow. LEFT EPIDIDYMIS: Epididymal head measures 0.8 x 0.9 x 0.9 cm. There is near the right epididymal tail and/or lower portion of the testicle and extratesticular fluid like focus the that is either a exophytic right epididymal tail cyst or a focal area of right hydrocele. This area measures 1.1 x 0.9 x 1.5 cm. HYDROCELE: Near the lower pole the right testicle. And also in close proximity with the right epididymal tail. Focal inferior right extratesticular hydrocele here versus exophytic right epididymal tail cyst. VARICOCELE: None. OTHER FINDINGS: None. IMPRESSION: Right intratesticular fairly diffuse heterogeneity well with flow similar to that in the left testicle. No focal discrete intratesticular mass noted. Findings are nonspecific prior episode of right orchitis or other inflammatory change here possible. No current increased vascularity to suggest an acute inflammatory hyperemic process is noted. The flow here compared to the left testicle appears symmetrical no gross evidence of current testicular torsion. Continued close surveillance is advised. Near the lower pole of the right testicle and also in close proximity with the right epididymal tail there is a focal fluid collection-a focal hydrocele here versus an exophytic right epididymal tail cysts are favored considerations. --------- lactate elevated with hemo-concentration but could have been due to dehydration, source identified 1330 and sepsis workup initiated, cultures then antibiotics initiated, repeat lactate improving. D/w Dr Foster marketing/sales person medicine for admission. Dr Veliz aware for urology consult [id number] Disposition - Clinical Impression Clinical Impression: Severe sepsis, UTI (urinary tract infection) - Patient ED Disposition Is Patient to be Admitted: Yes - Disposition Disposition Time: 13:45 Condition: FAIR - Pt Status Changed To: Hospital Disposition Of: Inpatient - Admit Certification Admit to Inpatient:: After my assessment, the patient will require hospitalization for at least two midnights. This is because of the severity of symptoms shown, intensity of services needed, and/or the medical risk in this patient being treated as an outpatient. - POA Present On Arrival: None
[2018-12-05 13:43] LABS: VENOUS BLOOD GAS BASE EXCESS 3.1 mmol/L (0.0-2.0); VENOUS BLOOD GAS PCO2 54 mmHg (40-60); VENOUS BLOOD GAS PO2 22 mm/Hg (30-55); VENOUS BLOOD PH 7.36 (7.32-7.43)
[2018-12-05 14:04] LABS: URINE BACTERIA FEW (<OCC); URINE BILIRUBIN NEGATIVE (NEGATIVE); URINE BLOOD SMALL (NEGATIVE); URINE CLARITY TURBID (Clear); URINE COLOR YELLOW (YELLOW); URINE GLUCOSE (UA) NEG (NEGATIVE); URINE LEUKOCYTE ESTERASE MOD Leu/uL (Negative); URINE PROTEIN 100 mg/dL (NEGATIVE); WBC CLUMPS MOD /hpf
[2018-12-05] MEDS ORDERED: POLYETHYLENE GLYCOL 3350 17 GM/Dose PACKET PO PRN (17:59)
--- NOTE | 2018-12-05 19:01 | CP.PCM.PN ---
Subjective - Date & Time of Evaluation Date of Evaluation: 12/05/18 Time of Evaluation: 18:56 - Subjective Subjective: 23 year old hisp male adnnnnmitted with testicular pain,elevated wbc and a ultrasound showing questionable signs of epidimitis. On pe no clinical signs of epidimitis. Suggest continue antibiotic with broad Gram neg coverage,adjust base d on any + culture pt should continue cic at least 4 x per day. Hosay Objective - Vital Signs/Intake and Output Vital Signs (last 24 hours): Temp Pulse Resp BP Pulse Ox 98.2 F 98 H 16 130/88 99 12/05/18 16:50 12/05/18 16:50 12/05/18 16:50 12/05/18 16:50 12/05/18 17:11 - Medications Medications: Current Medications Docusate Sodium (Colace) 100 mg PO Q12 [facility] Enalapril Maleate (Vasotec) 10 mg PO DAILY [facility] Escitalopram Oxalate (Lexapro) 10 mg PO DAILY [facility] Famotidine (Pepcid) 20 mg PO DAILY [facility] Hydrochlorothiazide (Microzide) 50 mg PO DAILY [facility] Piperacillin Sod/Tazobactam (Sod 4.5 gm/ Sodium Chloride) 100 mls @ 100 mls/hr IVPB Q8 GRETCH[facility]; Protocol Polyethylene Glycol (Miralax) 17 gm PO DAILY PRN PRN Reason: Constipation Sennosides (Senokot Tab) 8.6 mg PO Q12 [facility] Sodium Bicarbonate (Sodium Bicarbonate Tab) 1,300 mg PO Q12 [facility]RETCH[facility] - Labs Labs: 12/05/18 10:15 12/05/18 10:15
[2018-12-05] MEDS: Piperacillin/Tazobact 4.5 GM in Sodium Chloride 0.9% 100 ML IVPB SCH (19:15)
[2018-12-06] MEDS: Piperacillin/Tazobact 4.5 GM in Sodium Chloride 0.9% 100 ML IVPB SCH ×3 (00:40→16:52)
--- NOTE | 2018-12-06 03:38 | HP ---
HISTORY OF PRESENT ILLNESS: Mr. Burger is a 23-year-old male, who was admitted via the emergency room because of right testicular pain and swelling for the past several days prior to presentation associated with also right flank pain. This has worsened for the past two weeks. He sought help in the emergency room, where he was evaluated and admitted for infection. PAST MEDICAL HISTORY: Spina bifida and has chronic recurrent urinary tract infection and has self catheterized. FAMILY HISTORY: Noncontributory. SOCIAL HISTORY: He does not smoke or drink. REVIEW OF SYSTEMS: Remarkable for urinary tract infection. PHYSICAL EXAMINATION: GENERAL: The patient is alert and oriented, appears much more comfortable since admission. VITAL SIGNS: Blood pressure 158/78 with a pulse of 132, respiratory rate is 18. He is afebrile. O2 saturations 99% on room air. SKIN: Fair turgor. HEENT: Pupils are equal, reactive to light and accommodation. Mouth shows fair hygiene. LUNGS: Clear. HEART: Regular. No murmur, rub, or gallop. ABDOMEN: Soft, nontender. No organomegaly. EXTREMITIES: No edema or cyanosis. CENTRAL NERVOUS SYSTEM: The patient is alert and oriented x3. No gross neurological deficits appreciated at present. LABORATORY DATA: Remarkable for ultrasound of the testicles that shows right intratesticular fairly diffuse heterogeneity with similar to that of the left testicle. Findings are nonspecific for prior episode of right orchitis and inflammatory changes. There is also fluid collection, focal hydrocele versus exophytic right epididymal cyst. WBC 13.4, hemoglobin 18.1, and platelet count 317,000. Sodium 141, potassium 4.2, BUN of 22, creatinine 1.3. Urinalysis is remarkable for moderate clumps of wbc, few bacteria, 20 rbc's, moderate leukocyte esterase. IMPRESSION: Sepsis with urinary tract infection, history of spina bifida. PLAN: Intravenous antibiotics, would obtain urology evaluation, and analgesics for pain. Further therapy will depend on findings. Jairo Foster MD
[2018-12-06 06:08] LABS: BASO # 0.1 K/uL (0.0-0.2); BASO % 0.8 % (0.0-2.0); EOS # 0.2 K/uL (0.0-0.7); EOS % 1.8 % (0.0-4.0); HEMOGLOBIN 16.3 g/dL (12.0-18.0); LYMPH # 2.6 K/uL (1.0-4.3); LYMPH % 27.5 % (20.0-40.0); MEAN CELL VOLUME 88.9 fl (80.0-94.0); MEAN CORPUSCULAR HEMOGLOBIN 29.8 pg (27.0-31.0); MEAN CORPUSCULAR HGB CONC 33.5 g/dL (33.0-37.0); MEAN PLATELET VOLUME 8.1 fl (7.2-11.7); MONO # 0.8 K/uL (0.0-0.8); MONO % 8.1 % (0.0-10.0); NEUT # 5.8 K/uL (1.8-7.0); NEUT % 61.8 % (50.0-75.0); RBC 5.49 Mil/uL (4.40-5.90); RED CELL DISTRIBUTION WIDTH 13.1 % (11.5-14.5); WHITE BLOOD COUNT 9.4 K/uL (4.8-10.8)
[2018-12-06 06:18] LABS: BLOOD UREA NITROGEN 18 mg/dl (9-20); GFR NON-AFRICAN AMERICAN > 60
--- NOTE | 2018-12-06 08:54 | CP.PCM.PN ---
Subjective - Date & Time of Evaluation Date of Evaluation: 12/06/18 Time of Evaluation: 08:54 - Subjective Subjective: FEELS BETTER NO TESTICULAR PAIN TODAY Objective - Vital Signs/Intake and Output Vital Signs (last 24 hours): Temp Pulse Resp BP Pulse Ox 98.4 F 78 20 115/80 100 12/06/18 05:00 12/06/18 05:00 12/06/18 05:00 12/06/18 05:00 12/06/18 05:00 - Medications Medications: Current Medications Docusate Sodium (Colace) 100 mg PO Q12 [facility] Last Admin: 12/05/18 21:33 Dose: 100 mg Enalapril Maleate (Vasotec) 10 mg PO DAILY [facility] Escitalopram Oxalate (Lexapro) 10 mg PO DAILY [facility] Famotidine (Pepcid) 20 mg PO DAILY [facility] Hydrochlorothiazide (Microzide) 50 mg PO DAILY [facility] Piperacillin Sod/Tazobactam (Sod 4.5 gm/ Sodium Chloride) 100 mls @ 100 mls/hr IVPB Q8 [facility]; Protocol Last Admin: 12/06/18 00:40 Dose: 100 mls/hr Polyethylene Glycol (Miralax) 17 gm PO DAILY PRN PRN Reason: Constipation Sennosides (Senokot Tab) 8.6 mg PO Q12 [facility] Last Admin: 12/05/18 21:34 Dose: 8.6 mg Sodium Bicarbonate (Sodium Bicarbonate Tab) 1,300 mg PO Q12 [facility] Last Admin: 12/05/18 21:33 Dose: 1,300 mg - Labs Labs: 12/06/18 05:20 12/06/18 05:20 - Constitutional Appears: Well - Head Exam Head Exam: ATRAUMATIC, NORMAL INSPECTION, NORMOCEPHALIC - Eye Exam Eye Exam: EOMI, Normal appearance, PERRL Pupil Exam: NORMAL ACCOMODATION, PERRL - ENT Exam ENT Exam: Mucous Membranes Moist, Normal Exam - Neck Exam Neck Exam: Full ROM, Normal Inspection. absent: Lymphadenopathy - Respiratory Exam Respiratory Exam: Clear to Ausculation Bilateral, NORMAL BREATHING PATTERN - Cardiovascular Exam Cardiovascular Exam: REGULAR RHYTHM, +S1, +S2. absent: Murmur - GI/Abdominal Exam GI & Abdominal Exam: Soft, Normal Bowel Sounds. absent: Tenderness - Rectal Exam Rectal Exam: NORMAL INSPECTION - Extremities Exam Extremities Exam: Full ROM, Normal Capillary Refill, Normal Inspection. absent: Joint Swelling, Pedal Edema - Back Exam Back Exam: NORMAL INSPECTION - Neurological Exam Neurological Exam: Alert, Awake, CN II-XII Intact, Normal Gait, Oriented x3 - Psychiatric Exam Psychiatric exam: Normal Affect, Normal Mood - Skin Skin Exam: Dry, Intact, Normal Color, Warm Assessment and Plan - Assessment and Plan (Free Text) Assessment: EPIDIDYMITIS UTI HX OF SPINA BIFIDA Plan: CONTINUE ANTIBIOTIC RX UROLOGY NOTE APPRECIATED
--- NOTE | 2018-12-06 15:16 | PQF ---
PROVIDER RESPONSE TEXT: UTI IS RELATED TO SELF CATHETARIZATION AND URINARY RETENTION REVIEWER QUERY TEXT: Cause and Effect Relationship Please clarify if the UTI is self catheterization related or , due to urinary retention ( hx spina Bi fida ) regular UTI, other explanation Please clarify in documentation the relationship, if any, between the UTI and Self Catheterization pr n. Such as: -- Conditions are due to or associated -- Unrelated to each other -- Other, please specify The patient's Clinical Indicators include: History of Spina Bifida and patient self catheterizes. C/O R testicular pain, swelling and R flank pain. Urine CS: >100,000 Gram Negative Rods. WBC 13.4 L shift , lactate 2.4 Rx: IVAB Query created by: So Lerma on 12/06/2018 1:56 PM Electronically signed by: Jairo Foster MD 12/06/2018 3:13 PM
--- NOTE | 2018-12-06 15:16 | PQF ---
PROVIDER RESPONSE TEXT: STAGE 1 R FOOT PRESSURE ULCER--PRESENT ON ADMISSION REVIEWER QUERY TEXT: Skin Ulcer Type and Severity 12/05/18 @ 1455 hours Nursing note: right bottom of foot ulcer 1cm x 1cm Skin ulcer is documented in the Medical Record by the RN. Please specify the type and severity of the ulcer or other explanation. IF pressure related please document the stage. Such as: Type: -- Pressure ulcer -- Diabetic skin ulcer -- Venous stasis ulcer -- Other, please specify Severity: -- Limited to breakdown of skin -- With fat layer exposure -- With necrosis of muscle -- With necrosis of bone -- Other, please specify The patient's Clinical Indicators include: 12/05/18 @ 1455 hours Nursing note: right bottom of foot ulcer 1cm x 1cm . Query created by: So Lerma on 12/06/2018 1:59 PM Electronically signed by: Jairo Foster MD 12/06/2018 3:13 PM
[2018-12-07] MEDS: Piperacillin/Tazobact 4.5 GM in Sodium Chloride 0.9% 100 ML IVPB SCH ×2 (00:31→09:43)
[2018-12-07 05:04] VITALS: TEMP 97.8; O2SAT 100
[2018-12-07 08:06] VITALS: BP 120/79; PULSE 79; RESP 20
--- NOTE | 2018-12-07 11:24 | CP.PCM.DIS ---
Provider - Provider Date of Admission: 12/05/18 13:26 Attending physician: Jairo Foster MD Consults: 12/05/18 15:42 Urology Consult Routine Comment: Consulting Provider: Aurelio Veliz Jr. Consulting Physician: Aurelio Veliz Jr. Reason for Consult: hx spina bifida w self-cath, UTI/poss orchitis/sepsis Time Spent in preparation of Discharge (in minutes): 30 Diagnosis - Discharge Diagnosis (1) Spina bifida Status: Acute (2) Severe sepsis Status: Acute (3) UTI (urinary tract infection) Status: Acute (4) DVT prophylaxis Status: Acute (5) Epididymo-orchitis Status: Acute (6) Urinary retention Status: Acute (7) Neurogenic bladder Status: Chronic (8) Pressure ulcer Status: Acute Hospital Course - Lab Results Lab Results: Micro Results 12/05/18 13:30 Urine,Catheterized Urine Culture - Final Escherichia Coli 12/05/18 13:45 Blood-Venous Blood Culture - Preliminary NO GROWTH AFTER 24 HOURS 12/05/18 13:30 Blood-Venous Blood Culture - Preliminary NO GROWTH AFTER 24 HOURS Most Recent Lab Values WBC 9.4 K/uL (4.8-10.8) 12/06/18 05:20 RBC 5.49 Mil/uL (4.40-5.90) 12/06/18 05:20 Hgb 16.3 g/dL (12.0-18.0) 12/06/18 05:20 Hct 48.8 % (35.0-51.0) 12/06/18 05:20 MCV 88.9 fl (80.0-94.0) 12/06/18 05:20 MCH 29.8 pg (27.0-31.0) 12/06/18 05:20 MCHC 33.5 g/dL (33.0-37.0) 12/06/18 05:20 RDW 13.1 % (11.5-14.5) 12/06/18 05:20 Plt Count 272 K/uL (130-400) 12/06/18 05:20 MPV 8.1 fl (7.2-11.7) 12/06/18 05:20 Neut % (Auto) 61.8 % (50.0-75.0) 12/06/18 05:20 Lymph % (Auto) 27.5 % (20.0-40.0) 12/06/18 05:20 [place] % (Auto) 8.1 % (0.0-10.0) 12/06/18 05:20 Eos % (Auto) 1.8 % (0.0-4.0) 12/06/18 05:20 Baso % (Auto) 0.8 % (0.0-2.0) 12/06/18 05:20 Neut # (Auto) 5.8 K/uL (1.8-7.0) 12/06/18 05:20 Lymph # (Auto) 2.6 K/uL (1.0-4.3) 12/06/18 05:20 [place] # (Auto) 0.8 K/uL (0.0-0.8) 12/06/18 05:20 Eos # (Auto) 0.2 K/uL (0.0-0.7) 12/06/18 05:20 Baso # (Auto) 0.1 K/uL (0.0-0.2) 12/06/18 05:20 pO2 22 mm/Hg (30-55) L 12/05/18 13:37 VBG pH 7.36 (7.32-7.43) 12/05/18 13:37 VBG pCO2 54 mmHg (40-60) 12/05/18 13:37 VBG HCO3 25.1 mmol/L 12/05/18 13:37 VBG Total CO2 32.2 mmol/L (22-28) H 12/05/18 13:37 VBG O2 Sat (Calc) 41.4 % (40-65) 12/05/18 13:37 VBG Base Excess 3.1 mmol/L (0.0-2.0) H 12/05/18 13:37 VBG Potassium 3.9 mmol/L (3.6-5.2) 12/05/18 13:37 Sodium 141.0 mmol/L (132-148) 12/05/18 13:37 Chloride 104.0 mmol/L (98-107) 12/05/18 13:37 Glucose 95 mg/dL (75-110) 12/05/18 13:37 Lactate 2.1 mmol/L (0.7-2.1) 12/05/18 13:37 FiO2 21.0 % 12/05/18 13:37 Sodium 138 mmol/l (132-148) 12/06/18 05:20 Potassium 4.0 MMOL/L (3.6-5.0) 12/06/18 05:20 Chloride 100 mmol/L (98-107) 12/06/18 05:20 Carbon Dioxide 23 mmol/L (22-30) 12/06/18 05:20 Anion Gap 19 (10-20) 12/06/18 05:20 BUN 18 mg/dl (9-20) 12/06/18 05:20 Creatinine 1.2 mg/dl (0.8-1.5) 12/06/18 05:20 Est GFR ( Amer) > 60 12/06/18 05:20 Est GFR (Non-Af Amer) > 60 12/06/18 05:20 Random Glucose 94 mg/dL (75-110) 12/06/18 05:20 Calcium 9.0 mg/dL (8.4-10.2) 12/06/18 05:20 Total Bilirubin 0.6 mg/dl (0.2-1.3) 12/05/18 10:15 AST 23 U/L (17-59) 12/05/18 10:15 ALT 31 U/L (21-72) 12/05/18 10:15 Alkaline Phosphatase 76 U/L (38-126) 12/05/18 10:15 Total Protein 9.5 G/DL (6.3-8.2) H 12/05/18 10:15 Albumin 5.0 g/dL (3.5-5.0) D 12/05/18 10:15 Globulin 4.4 gm/dL (2.2-3.9) H 12/05/18 10:15 Albumin/Globulin Ratio 1.1 (1.0-2.1) 12/05/18 10:15 Venous Blood Potassium 3.9 mmol/L (3.6-5.2) 12/05/18 13:37 Urine Color Yellow (YELLOW) 12/05/18 13:30 Urine Clarity Turbid (Clear) 12/05/18 13:30 Urine pH 6.0 (5.0-8.0) 12/05/18 13:30 Ur Specific [place] 1.011 (1.003-1.030) 12/05/18 13:30 Urine Protein 100 mg/dL (NEGATIVE) 12/05/18 13:30 Urine Glucose (UA) Neg mg/dL (NEGATIVE) 12/05/18 13:30 Urine Ketones Negative mg/dL (NEGATIVE) 12/05/18 13:30 Urine Blood Small (NEGATIVE) 12/05/18 13:30 Urine Nitrate Negative (NEGATIVE) 12/05/18 13:30 Urine Bilirubin Negative (NEGATIVE) 12/05/18 13:30 Urine Urobilinogen 2.0 mg/dL (0.2-1.0) 12/05/18 13:30 Ur Leukocyte Esterase Mod [place]/uL (Negative) 12/05/18 13:30 Urine RBC (Auto) 20 /hpf (0-3) H 12/05/18 13:30 Urine WBC Clumps (Auto) Mod /hpf (NONE) H 12/05/18 13:30 Urine Microscopic WBC 152 /hpf (0-5) H 12/05/18 13:30 Urine Bacteria Few (<OCC) H 12/05/18 13:30 C.trachomatis RNA (TMA) Not detected (Not Detected) 12/05/18 16:45 N.gonorrhoeae RNA (TMA) Not detected (Not Detected) 12/05/18 16:45 - Hospital Course Hospital Course: 23 YR OLD MALE WITH URINARY RETENTION,SCROTAL PAIN,DYSURIA AND SEPSIS.HE WAS TREATED WITH IV ANTIBIOTICS AND CLINICALLY IMPROVED. HE WILL BE DISCHARGED WITH ORAL ANTIBIOTICS X 1 MORE WEEK.HE WILL FOLLOW UP WITH HIS PMD AND UROLOGIST. Discharge Exam - Head Exam Head Exam: ATRAUMATIC, NORMAL INSPECTION, NORMOCEPHALIC - Eye Exam Eye Exam: EOMI, Normal appearance, PERRL Pupil Exam: NORMAL ACCOMODATION, PERRL - GI/Abdominal Exam GI & Abdominal Exam: Normal Bowel Sounds - Rectal Exam Rectal Exam: NORMAL INSPECTION - Neurological Exam Neurological exam: Alert, CN II-XII Intact, Normal Gait, Oriented x3, Reflexes Normal - Psychiatric Exam Psychiatric exam: Normal Affect, Normal Mood - Skin Skin Exam: Dry, Intact, Normal Color, Warm Discharge Plan - Follow Up Plan Condition: FAIR Disposition: HOME/ ROUTINE Additional Instructions: DISCHARGE TODAY ON ORAL ANTIBIOTICS FOLLOW UP WITH PMD AND UROLOGIST
== END 2018-12-07 13:40 | disposition home or self-care (01) | DRG 569 ==
LOC: H.ER 08:53 → H.ERHOLD 13:26 → H.TEL 16:26
PROVIDERS: ADMIT Internal Medicine Pulmonary Disease; ATTEND Internal Medicine Pulmonary Disease
DX: T83.511A Infection and inflammatory reaction due to indwelling urethral catheter, initial encounter (principal); A41.9 Sepsis, unspecified organism; L89.891 Pressure ulcer of other site, stage 1; R65.20 Severe sepsis without septic shock; Q05.9 Spina bifida, unspecified; N39.0 Urinary tract infection, site not specified; N45.1 Epididymitis; N31.8 Other neuromuscular dysfunction of bladder; B96.20 Unspecified Escherichia coli [E. coli] as the cause of diseases classified elsewhere; R33.8 Other retention of urine; F41.9 Anxiety disorder, unspecified; Z98.2 Presence of cerebrospinal fluid drainage device; Y84.6 Urinary catheterization as the cause of abnormal reaction of the patient, or of later complication, without mention of misadventure at the time of the procedure; Y92.89 Other specified places as the place of occurrence of the external cause